=== PATIENT | male | born 1955 | race Caucasian/White ===

== ENCOUNTER 2020-04-21 09:45 | Inpatient (IN) | payer BC, MEDICARE, SELFPAY ==
[2020-04-21] VITALS (7 sets, daily range): BP systolic 126–160; BP diastolic 72–89; PULSE 78–95; RESP 16–22; TEMP 36.4–37; O2SAT 96–98
--- NOTE | ~2020-04-21 | CT_ITS ---
EXAMINATION: CT brain wo con INDICATION: Aphasia COMPARISON: None TECHNIQUE: Standard unenhanced head CT. The dose-length product (DLP) was 681.00 mGy-cm. The mA was a djusted according to patient size. Iterative reconstruction technique was employed. FINDINGS: There is no acute intraparenchymal hemorrhage. No evidence of mass lesion. There is encepha lomalacia of the right temporal lobe, consistent with prior infarction. There are also old infarcts o f the left basal ganglia. There is mild periventricular and subcortical hypodensity probably related to small vessel ischemic disease. There is mild prominence of the sulci and ventricles related to cer ebral atrophy. Intracranial calcified cerebral atherosclerosis is noted. There are no extra-axial col lections. There is no mass effect or midline shift. The orbits and soft tissues are unremarkable. Th e visualized sinuses and mastoid air cells are well aerated. IMPRESSION: 1. Areas of prior infarction without acute intracranial abnormality. 2. Age related findings. Reviewed, dictated and finalized at location A. IAL TESTER
--- NOTE | ~2020-04-21 | US_ITS ---
EXAMINATION: US carotid duplex BI DATE: 04/21/2020 14:37 INDICATION: Aphasia. Left hemiparesis. TECHNIQUE: Grayscale, color Doppler, and pulsed Doppler images of the cervical carotid arteries were obtained. The degree of vessel stenosis is placed in one of the following categories: normal, <50%, 5 0-69%, >=70% but less than near-occlusion, near-occlusion, or total occlusion. Note that percent sten osis relative to normal distal artery lumen diameter is indirectly measured from velocity measurement s as described by Kendell, et al. Radiology 2003; 229:340-346. COMPARISON: Ultrasound 05/06/2017 FINDINGS: RIGHT: The right common carotid artery (CCA) peak systolic velocity (PSV) is 106 cm/s. The right internal ca rotid artery (ICA) PSV is 71 cm/s. The right ICA end-diastolic velocity (EDV) is 14 cm/s. The right I CA/CCA PSV ratio is 0.7. Grayscale and color Doppler images yield an estimate of <50% diameter reduct ion from plaque in the ICA. There is antegrade flow in the right vertebral artery. LEFT: The left CCA PSV is 126 cm/s. The left ICA PSV is 76 cm/s. The left ICA EDV is 21 cm/s. The left ICA/ CCA PSV ratio is 0.6. Grayscale and color Doppler images yield an estimate of <50% diameter reduction from plaque in the ICA. There is antegrade flow in the left vertebral artery. IMPRESSION: 1. <50% stenosis in the right internal carotid artery. 2. <50% stenosis in the left internal carotid artery. Reviewed, dictated and finalized at location A. HEMIST
--- NOTE | ~2020-04-21 | XR_ITS ---
EXAMINATION: XR chest 1V portable INDICATION: Dysphagia, CVA TECHNIQUE: Portable AP chest at 1006 hours COMPARISON: None available FINDINGS: The lungs are free of acute opacities. There is no pleural effusion or pneumothorax. The ca rdiomediastinal silhouette is normal. There are partially imaged surgical changes in the lower cervic al spine. IMPRESSION: 1. No acute cardiopulmonary abnormality. Reviewed, dictated and finalized at location A. ER TENDER
--- NOTE | ~2020-04-21 | MR_ITS ---
EXAMINATION: MR brain/brain stem wo/w con DATE: 04/22/2020 10:50 INDICATION: Cerebral vascular accident. Left hemiparesis. TECHNIQUE: Magnetic resonance imaging (MRI) of the brain and brainstem was performed without and with 20 mL MultiHance intravenous contrast. Sequences included sagittal and axial T1-weighted FSE, axial diffusion-weighted FS EPI, axial T2*-weighted GRE, axial T2-weighted FLAIR Propeller, and axial T2-we ighted Propeller. Postcontrast sequences included axial and coronal T1-weighted FSE. Apparent diffusi on coefficient (ADC) maps were created. COMPARISON: Head CT 05/01/2020, brain MRI 05/06/2017 FINDINGS: There is chronic encephalomalacia in right temporal lobe. There are patchy areas of acute i nfarct involving right temporal lobe, right insula, and the right frontoparietal deep white matter. T here is an acute infarct in the left basal ganglia. There are small old infarcts in the cerebellum on the right. There is an old infarct in the left caudate nucleus. There are scattered areas of nonspec ific increased T2-weighted signal intensity in the cerebral white matter. There is an old infarct in left frontal lobe. There is no intracranial hemorrhage or abnormal mass lesion. The ventricles are no rmal in size. There are likely changes of left ocular lens replacement surgery. There is mild mucosal thickening in the ethmoid sinuses. The mastoid air cells are normal. IMPRESSION: 1. Acute infarcts involving the right temporal lobe, right insula, right frontoparietal deep white ma tter, and left basal ganglia. 2. Old infarcts involving the right temporal lobe, left frontal lobe, left caudate nucleus, and right cerebellum. 3. Moderate nonspecific cerebral white matter disease, which likely represents chronic small vessel i schemic disease. Reviewed, dictated and finalized at location A. INE INSPECTOR IMPRESSION: 1. Acute infarcts involving the right temporal lobe, right insula, right fronto parietal deep white matter, and left basal ganglia. 2. Old infarcts involving the right temporal lobe, left frontal lobe, left caud ate nucleus, and right cerebellum. 3. Moderate nonspecific cerebral white matter disease, which likely represents chronic small vessel ischemic disease.
--- NOTE | 2020-04-21 09:47 | ECG_ITS ---
Measurements Intervals [place] Rate: 91 P: 16 UT: 141 QRS: 58 QRSD: 124 T: -61 QT: 371 QTc: 457 Interpretive Statements SINUS RHYTHM VENTRICULAR PREMATURE COMPLEX INTRAVENTRICULAR CONDUCTION DELAY BORDERLINE ST-T WAVE ABNORMALITY- INFERIOR LEADS ABNORMAL ECG Electronically Signed On 04-21-2020 10:11:29 ASSEMBLING INSPECTOR by Eliezer Evans D.O.
--- NOTE | 2020-04-21 09:47 | ED.NEUROSD ---
HPI - Neuro Symptoms/Deficit General Chief Complaint: Suspected CVA Stated Complaint: poss cva Source: RN notes reviewed History of Present Illness HPI Narrative: Patient presents to emergency department from home via EMS for left-sided weakness and aphasia. Patient with a previous CVA 3 years ago that left him with mild left-sided weakness. Per the patient's who discussed with EMS the patient's last known normal Tuesday and has had increasing left-sided weakness as well as aphasia which is new patient is on Eliquis daily which she has been taking. Patient denies any fevers or chills chest pain shortness of breath or any other symptoms per the patient's was present the patient took his Eliquis this morning Related Data Home Medications Medication Instructions Recorded Confirmed amlodipine 04/21/20 apixaban [Eliquis] mg 04/21/20 atorvastatin 04/21/20 04/21/20 celecoxib [Celebrex] mg 04/21/20 empagliflozin [Jardiance] mg 04/21/20 furosemide 04/21/20 glyburide mg 04/21/20 liraglutide [Victoza 2-Javier] mg SUBCUT 04/21/20 lisinopril 04/21/20 potassium chloride meq PO 04/21/20 sitagliptin-metformin [Janumet] tablet 04/21/20 Allergies Allergy/AdvReac Type Severity Reaction Status Date / Time No Known Allergies Allergy Verified 04/21/20 10:07 Review of Systems Review of Systems: Narrative: Gen.: Denies fevers or chills Eyes: Denies eye pain or visual change ENT: Denies congestion Respiratory: Denies shortness of breath or cough CV: Denies chest pain or palpitations GI: Denies abdominal pain nausea, emesis or diarrhea denies burning, urgency, frequency or hematuria Musculoskeletal: Denies back pain or muscle pain Neuro: See HPI Skin: Denies rash Except as documented, all other systems reviewed and negative [facility] Past Medical History Medical History (Updated 04/21/20 @ 11:05 by Dorian Arteaga DO) CVA (cerebral vascular accident) Social History Social History (Updated 04/21/20 @ 09:48 by Dorian Arteaga DO) Smoking status: Never smoker Exam Narrative: Exam Narrative: APPEARANCE: No acute distress, nontoxic, resting in bed HEENT: Normocephalic, atraumatic, OMM, TMs clear bilaterally EYES: PERRL, EOMI NECK: Supple, nontender, full range of motion without pain, no meningismus RESPIRATORY: No respiratory distress, clear to auscultation bilaterally with no rhonchi wheezing or rales CARDIOVASCULAR: RRR s murmur ABDOMINAL: Soft, nontender, nondistended MUSCULOSKELETAL: Moves all extremities. No clubbing, cyanosis or edema. NEURO: A and O ?2, following commands, aphasia, cranial nerves II through XII grossly intact, muscle strength 5 out of 5 in right upper extremity and right lower extremity, muscle strength 4-5 in left upper extremity left lower extremity SKIN:: Warm, dry. Normal Color PSYCHIATRIC: Normal affect/mood Course Course Emergency Course: Dr. Armstrong presentation work-up agrees with admission at this time Discussed with Dr. Sanz presentation work-up agrees with consult. Patient received his Eliquis this morning agrees no additional medication Discussed with patient and family results of workup and diagnosis. Discussed need for admission. Patient and family understand and agree to current treatment plan Vital Signs Vital signs: Vital Signs Pulse Rate 79 04/21/20 10:01 Respiratory Rate 22 H 04/21/20 10:01 Blood Pressure 135/73 04/21/20 10:01 Pulse Oximetry 98 04/21/20 10:01 Pulse Rate 79 04/21/20 10:01 Respiratory Rate 22 H 04/21/20 10:01 Blood Pressure 135/73 04/21/20 10:01 Pulse Oximetry 98 04/21/20 10:01 MDM - Neuro Symptoms/Deficit Lab Data Result diagrams: 04/21/20 09:55 04/21/20 09:55 Labs: Lab Results 04/21/20 04/21/20 04/21/20 Range/Units 09:54 09:55 09:55 WBC 11.0 H (4.5-10.0) K/mm3 RBC 4.98 (4.2-5.4) M/mm3 Hgb 15.6 H (12.0-15.0) g/dL Hct 46.6 (37.0-47.0) % MCV 9
[2020-04-21 10:00] LABS: Glucose Point of Care 147 (65-105)
[2020-04-21 10:09] LABS: Basophils Percent Auto 0.3 % (0.2-1.2); Eosinophils Absolute Auto 0.1 K/mm3 (0-0.3); Eosinophils Percent Auto 1.1 % (0-4.4); Hematocrit 46.6 % (37.0-47.0); Hemoglobin 15.6 g/dL (12.0-15.0); Immature Granulocyte Absolute 0.05 K/mm3 (0.00-0.031); Immature Granulocyte Percent A 0.5 % (0-0.5); Lymphocytes Absolute Auto 1.74 K/mm3 (0.9-3.2); Lymphocytes Percent Auto 15.8 % (18.3-44.2); Mean Corpuscular HGB Conc 33.5 g/dl (32-36); Mean Corpuscular Hemoglobin 31.3 pg (26-34); Mean Corpuscular Volume 93.6 fl (80-100); Mean Platelet Volume 9.4 fl (7.4-10.4); Monocytes Absolute Auto 0.7 K/mm3 (0.1-0.6); Monocytes Percent Auto 6.1 % (2.6-8.5); Neutrophils Absolute Auto 8.4 K/mm3 (1.3-6.7); Neutrophils Percent Auto 76.2 % (45.5-73.1); Platelet Count Result 207 k/mm3 (150-375); Red Blood Count 4.98 M/mm3 (4.2-5.4); Red Cell Distribution Width 12.7 % (11.5-14.5)
[2020-04-21 10:18] LABS: INR 1.1; Prothrombin Time 14.7 Seconds (11.1-14.7)
[2020-04-21 10:19] LABS: Partial Thromboplastin Time 31.3 SECONDS (22.3-36.8)
--- NOTE | 2020-04-21 10:56 | PC.NURSE ---
report given to Nuria CORTES. patient resting on stretcher. on cardiac technician. at bedside.
[2020-04-21 11:00] LABS: Anion Gap 9 mmol/L (8-16); Blood Urea Nitrogen 19 mg/dL (7-17); Calcium 8.9 mg/dL (8.4-10.2); Carbon Dioxide 26 mmol/L (22-30); Chloride 104 mmol/L (98-107); Estimated Glomerular Filt Rate > 60; Glucose 143 mg/dL (65-105); Potassium 3.9 mmol/L (3.4-5.0); Sodium 139 mmol/L (137-145)
[2020-04-21 11:10] LABS: Add Urine Microscopic? YES; Appearance Urine Clear (Clear); Bacteria Urine Trace /hpf; Bilirubin Urine Negative (Negative); Blood Urine Negative (Negative); Color Urine Yellow (Yellow); Glucose Urine UA 3+ mg/dL (Negative); Ketones Urine 1+ mg/dL (Negative); Leukocyte Esterase Ur Negative LEU/UL (Negative); Mucus Urine Rare /lpf; Nitrate Urine Negative (Negative); Protein Urine Negative (Negative); RBC Urine 0-2 /hpf (0-2); Urobilinogen Urine Negative mg/dL (<2.0); WBC Urine 0-3 /hpf
[2020-04-21 11:11] LABS: Specific Grav Ur 1.031 (1.001-1.035)
[2020-04-21 11:12] LABS: Troponin I < 0.012 ng/mL (0.000-0.034)
--- NOTE | 2020-04-21 13:30 | PM.IMHP ---
H&P: HPI History of Present Illness Date/Time: 04/21/20 13:30 Chief Complaint: Suspected stroke. Narrative: This is a a 65-year-old male with history stroke with mild left-sided weakness, hypertension, hyperlipidemia, and type 2 diabetes mellitus presented to the emergency department earlier today via EMS from home for evaluation of a suspected stroke. According to the patient's , he appeared to have increasing left-sided weakness from his baseline on Tuesday and is my understanding that today he had difficulty speaking. He presented with expressive aphasia on arrival to the emergency department and while he is able answer some questions he has a difficult time getting a lot of his words out. At the time my evaluation he has no specific complaints and denies headache, vertigo, paresthesias, dysphagia, and gait disturbances. He states compliance with his home medication, including apixaban. Review of Systems Review of Systems: Narrative: Twelve systems were reviewed with pertinent positives and negatives as per HPI. Somewhat limited given his expressive aphasia but I think he does understand when I am saying and he nods and shakes his head appropriately. He denies recent cold and flu symptoms. No fall or head trauma. No chest pain or shortness of breath. Except as documented, all other systems were reviewed and are negative. [facility], LAT[facility] Past Medical History Medical History (Updated 04/21/20 @ 23:53 by Gabi Subramanian PA-C) Cerebrovascular accident CVA in June 2015 and July 2015 presenting with expressive aphasia (improved) and mild residual left-sided weakness. 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 DAVID was negative for cardioembolic source. He has been on Eliquis since that time. Congenital duplication of renal collecting system History of pancreatitis With pancreatic stent. Hyperlipidemia Hypertension Obstructive sleep apnea on CPAP Patient states he has not been wearing his CPAP. Type 2 diabetes mellitus Surgical History Surgical History (Updated 04/21/20 @ 13:23 by Gabi Subramanian PA-C) History of cardiac catheterization (~2011) Normal coronary anatomy. History of cervical spinal surgery x2. History of vein stripping Family History Family History Other Acute myocardial infarction Diabetes mellitus Heart disease Hypertension Lung cancer Parkinson's disease Social History Social History (Updated 04/21/20 @ 13:39 by Gabi Subramanian PA-C) Social History: The patient lives in [place] with his . Retired from the [employer]. He smoked briefly as a teenager. No alcohol or illicit substance abuse. His Adi is his surrogate decision maker and he wishes to be a full code. Smoking status: Never smoker Alcohol intake: never Substance use: never Gender identity (if verbalized by the patient): Male Sexual Orientation (if Verbalized by the Patient): Straight or Heterosexual Spiritual care concerns: No Meds Home Medications and Allergies Home Medications Medication Instructions Recorded Confirmed Type amlodipine 5 mg PO BID 04/21/20 04/21/20 History apixaban [Eliquis] 5 mg PO BID 04/21/20 04/21/20 History atorvastatin 40 mg PO DAILY 04/21/20 04/21/20 History celecoxib [Celebrex] 200 mg PO DAILY 04/21/20 04/21/20 History cholestyramine (with sugar) 1 - 2 ea PO DAILY 04/21/20 04/21/20 History empagliflozin [Jardiance] 25 mg PO DAILY 04/21/20 04/21/20 History furosemide 40 mg PO DAILY 04/21/20 04/21/20 History glyburide 5 mg PO DAILY 04/21/20 04/21/20 History liraglutide [Victoza 2-Javier] 1.8 mg SUBCUT DAILY 04/21/20 04/21/20 History potassium chloride 20 meq PO DAILY 04/21/20 04/21/20 History quinapril 40 mg PO DAILY 04/21/20 04/21/20 History sitagliptin-metformin [Janumet] 50 - 1,000 tablet PO BID 04/21/20 04/21/20 History Allergies Allergy/AdvReac Type Severity Reacti
--- NOTE | 2020-04-21 13:35 | ADMGEN ---
This patient, Harley Hernandez, was admitted to Medical Room 260-. Patient/family oriented to hospital policies and general routines including ID bracelet, bed and alarms, visiting hours, pain management, procedures, bathroom and other care routines, personal items, smoking policy, room service/diet, and visiting hours. Information on how to activate the Rapid Response Team has been discussed. Patient/Family are encouraged to report perceived risks to care and to ask questions if they do not understand what they are told or what they should do.
[2020-04-21 14:34] LABS: Troponin I < 0.012 ng/mL (0.000-0.034)
[2020-04-21 16:43] LABS: Glucose Point of Care 94 (65-105)
[2020-04-21 17:35] LABS: Troponin I < 0.012 ng/mL (0.000-0.034)
[2020-04-21 21:04] LABS: Glucose Point of Care 217 (65-105)
[2020-04-22] VITALS (10 sets, daily range): BP systolic 115–174; BP diastolic 61–92; PULSE 68–99; RESP 14–20; TEMP 36.3–36.9; O2SAT 97–99
--- NOTE | 2020-04-22 | ECHO_ITS ---
Patient Info Name: Harley Hernandez Age: 65 years : 1955 Gender: Male Ht: 73 in Wt: 250 lbs BSA: 2.45 m2 HR: 90 bpm BP: 174 / 82 mmHg Heart Rhythm: Sinus Rhythm Technical Quality: Poor Exam Date: 04/22/2020 1:43 PM Exam Location: [facility] Patient Status: Inpatient Admit Date: 04/21/2020 Staff Ordering Physician: Vasiliy Sanz MD Frame Stylist: Alok Rao RDCS Attending Provider: Rekha Armstrong MD Exam Type: CA echo dop color flow w con Study Info Indications 436.0 - CVA Complete two-dimensional, color flow and Doppler transthoracic echocardiogram is performed with contrast to opacify the left ventricle and to improve the deliniation of the left ventricle endocardial borders. Contrast/Agitated Saline Contrast/Ag. Saline: Definity Amount: 2.00 ml Administered By: Lana Pratt RN Existing IV Access: Yes History/Risk Factors Possible stroke w/ aphasia, HTN, DM2. Summary 1. Technically suboptimal study due to poor sonographic images. 2. Definity contrast administered improved wall motion interpretation. However, definity in the parasternal views were limited and suboptimal. 3. Left ventricular systolic function is preserved, estimated at 50-55%. 4. Left ventricular chamber dimension is mildly enlarged. 5. The left ventricular diastolic function is grade I diastolic dysfunction. 6. E/e' 7 is not elevated. 7. There is mild aortic valve sclerosis. Left Ventricle Technically suboptimal study due to poor sonographic images. Definity contrast administered improved wall motion interpretation. However, definity in the parasternal views were limited and suboptimal. E/e' 7 is not elevated. Left ventricular systolic function is preserved, estimated at 50-55%. Left ventricular chamber dimension is mildly enlarged. The left ventricular diastolic function is grade I diastolic dysfunction. Right Ventricle Right ventricular chamber dimension is not well visualized. Left Atria Left atrial chamber dimension is normal. Right Atria Right atrial chamber dimension is not well visualized. Aortic Valve The aortic valve is not well visualized. Cannot determine number of aortic valve leaflets. There is mild aortic valve sclerosis. There is no aortic valve stenosis. There is no aortic valve regurgitation. Pulmonic Valve The pulmonic valve is not well visualized. Mitral Valve The mitral valve has not well visualized. There is no mitral valve stenosis. There is no mitral valve regurgitation. Tricuspid Valve The tricuspid valve leaflets are not well visualized. There is no tricuspid valve regurgitation. Pericardium/Pleural There is no pericardial effusion. Inferior Vena Cava Normal inferior vena cava with >50% collapse upon inspiration consistent with normal right atrial pressure, 5 mmHg. Aorta Normal aortic root size. The aortic root size at the sinus of Valsalva is not well visualized. Left Ventricular Outflow Tract Name Value Normal LVOT 2D LVOT Diameter 2.07 cm LVOT Doppler LVOT Peak Gradient 7 mmHg
[2020-04-22 07:49] LABS: Basophils Percent Auto 0.3 % (0.2-1.2); Eosinophils Absolute Auto 0.2 K/mm3 (0-0.3); Eosinophils Percent Auto 1.9 % (0-4.4); Hematocrit 47.3 % (42.0-52.0); Immature Granulocyte Absolute 0.04 K/mm3 (0.00-0.031); Immature Granulocyte Percent A 0.4 % (0-0.5); Lymphocytes Absolute Auto 1.65 K/mm3 (0.9-3.2); Lymphocytes Percent Auto 18.5 % (18.3-44.2); Mean Corpuscular HGB Conc 33.8 g/dl (32-36); Mean Corpuscular Hemoglobin 31.8 pg (26-34); Mean Platelet Volume 9.5 fl (7.4-10.4); Monocytes Absolute Auto 0.6 K/mm3 (0.1-0.6); Monocytes Percent Auto 6.6 % (2.6-8.5); Neutrophils Absolute Auto 6.4 K/mm3 (1.3-6.7); Neutrophils Percent Auto 72.3 % (45.5-73.1); Platelet Count Result 189 k/mm3 (150-375); Red Blood Count 5.03 M/mm3 (4.6-6.20); Red Cell Distribution Width 12.6 % (11.5-14.5); White Blood Count 8.9 K/mm3 (4.5-10.0)
[2020-04-22 07:52] LABS: Glucose Point of Care 160 (65-105)
[2020-04-22 08:02] LABS: Alanine Aminotransferase 23 U/L (4-50); Albumin Level 4.1 g/dL (3.5-5.1); Alkaline Phosphatase 71 U/L (38-126); Anion Gap 7 mmol/L (8-16); Aspartate Amino Transferase 33 U/L (17-59); Bilirubin,Total 0.8 mg/dL (0.2-1.3); Blood Urea Nitrogen 16 mg/dL (9-20); Calcium 8.8 mg/dL (8.4-10.2); Carbon Dioxide 25 mmol/L (22-30); Chloride 108 mmol/L (98-107); Cholesterol 105 mg/dL (0-200); Estimated Glomerular Filt Rate > 60; Glucose 171 mg/dL (75-110); HDL Direct 30 mg/dL; Potassium 4.1 mmol/L (3.4-5.0); Sodium 140 mmol/L (137-145); Triglycerides 159 mg/dL (<150)
[2020-04-22 08:12] LABS: Hemoglobin A1C 8.2 % (<5.7)
[2020-04-22 08:13] LABS: LDL Cholesterol Direct 48 mg/dL
[2020-04-22] MEDS: lisinopriL 20 MG TABLET 40 MG PO (08:30)
[2020-04-22] MEDS: CELECOXIB 200 MG CAPSULE PO (08:31)
[2020-04-22] MEDS: amLODIPine BESYLATE 5 MG TABLET PO ×2 (08:31→17:28)
[2020-04-22] MEDS: FUROSEMIDE 40 MG TABLET PO (08:31)
[2020-04-22] MEDS: ATORVASTATIN 40 MG TABLET PO (08:31)
[2020-04-22] MEDS: POTASSIUM CHLORIDE 20 MEQ TABLET.ER PO (08:31)
[2020-04-22] MEDS: APIXABAN 5 MG TABLET PO ×2 (08:32→20:02)
--- NOTE | 2020-04-22 10:02 | WPDNEURCNPN ---
Assessment and Plan Assessment and plan (1) Obstructive sleep apnea on CPAP: Code(s): G47.33 - Obstructive sleep apnea (adult) (pediatric); Z99.89 - Dependence on other enabling machines and devices Status: Acute (2) Type 2 diabetes mellitus: Code(s): E11.9 - Type 2 diabetes mellitus without complications Status: Acute (3) Hypertension: Code(s): I10 - Essential (primary) hypertension Status: Acute (4) Hyperlipidemia: Code(s): E78.5 - Hyperlipidemia, unspecified Status: Acute (5) Expressive aphasia: Code(s): R47.01 - Aphasia Status: Acute (6) CVA (cerebral vascular accident): Code(s): I63.9 - Cerebral infarction, unspecified Status: Acute Additional Plan history of stroke in the past with mild residual left hemiparesis in addition to the underlying comorbid conditions of hypertension diabetes mellitus came in for the possibility of new stroke will obtain the MRI of the brain before any further recommendations are made Consult date: 04/22/20 Time Seen: 10:00 HPI: Harley Hernandez is a 65 year old male Admitted to the hospital for the possibility of his stroke. Patient has ongoing history of 1. Hypertension 2. Hyperlipidemia 3. Type 2 diabetes mellitus 4. Previous mild left hemiparesis. As per the information available from the patient's he appeared to have had increasing left-sided weakness with difficulties in speech and when he came to the emergency room he had extreme difficulties with getting the words out. As mentioned before patient has had a stroke in June of 2015 and July of 2015 with expressive aphasia at that time his carotid study had revealed moderate stenosis of left ICA but DAVID was negative for any cardioembolic source and he has been on Eliquis since that time. His repeat carotid studies revealed less than 50% stenosis bilaterally, and repeat CT scan revealed areas of previous infarction, blood studies are compatible with hyperglycemia with hemoglobin A1c of 8.2 and triglycerides 159, at present is covered with the NovoLog 225units subcu t.i.d. with meals along with the metformin 1000 mg twice a day and also sitagliptin 50 mg twice a day, glyburide 5 mg daily Review of Systems Review of Systems: All systems reviewed & are unremarkable except as noted in HPI and below PMFSH Past Medical History Medical History Cerebrovascular accident CVA in June 2015 and July 2015 presenting with expressive aphasia (improved) and mild residual left-sided weakness. 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 DAVID was negative for cardioembolic source. He has been on Eliquis since that time. Congenital duplication of renal collecting system History of pancreatitis With pancreatic stent. Hyperlipidemia Hypertension Obstructive sleep apnea on CPAP Patient states he has not been wearing his CPAP. Type 2 diabetes mellitus Surgical History Surgical History History of cardiac catheterization (~2011) Normal coronary anatomy. History of cervical spinal surgery x2. History of vein stripping Family History Family History Other Acute myocardial infarction Diabetes mellitus Heart disease Hypertension Lung cancer Parkinson's disease Social History Social History Social History: The patient lives in [place] with his . Retired from the [employer]. He smoked briefly as a teenager. No alcohol or illicit substance abuse. His Adi is his surrogate decision maker and he wishes to be a full code. Smoking status: Never smoker Alcohol intake: never Substance use: never Gender identity (if verbalized by the patient): Male Sexual Orientation (if Verbalized by the Patient): Straight or Heterosexual Spiri
--- NOTE | 2020-04-22 10:54 | PCOTNOTE ---
Pt. out for MRI when first attempt made. Nursing stated he would return around 10:30am. Attempted again at 10:45 still out for MRI. Will attempt again later.
[2020-04-22] MEDS: CHOLESTYRAMINE (W/ SUGAR) 4 GM POWD.PACK PO (11:42)
[2020-04-22] MEDS: INSULIN ASPART (*BKC) 100 UNITS/ML SUB-Q (11:47)
[2020-04-22 11:48] LABS: Glucose Point of Care 220 (65-105)
--- NOTE | 2020-04-22 13:14 | PM.IMPN ---
Progress Note: A&P Assessment and Plan (1) CVA (cerebral vascular accident): Code(s): I63.9 - Cerebral infarction, unspecified Status: Acute Assessment and Plan: Acute CVA, as well as, old CVA noted on Brain MRI; read as, acute infarcts involving the right temporal lobe, right insula, right frontoparietal deep white matter, and left basal ganglia. Old infarcts involving the right temporal lobe, left frontal lobe, left caudate nucleus, and right cerebellum. Symptoms started on 04/19, thus not a candidate for tPA. Patient tells me he feels somewhat better today; able to express himself and feels his weakness is somewhat better, but still having left LE weakness. Dr. Sanz consulted and appreciate recommendations; rec no changes in medications at this time and rec therapy. Echo has been ordered per Neurology. Will continue with PT/OT/ST Continue Eliquis and statin therapy; he reports compliance with medicatinos Monitor Await Echo CC working on possible placement if patient/family agreeable (2) Hypertension: Code(s): I10 - Essential (primary) hypertension Status: Acute Assessment and Plan: BP a bit elevated this morning at 170s sys prior to home medications Continue home antihypertensives Monitor (3) Hyperlipidemia: Code(s): E78.5 - Hyperlipidemia, unspecified Status: Acute Assessment and Plan: Triglycerides mildly elevated and HDL low at 30, otherwise lipid panel unremarkable. LFTs WNL Continue statin (4) Type 2 diabetes mellitus: Code(s): E11.9 - Type 2 diabetes mellitus without complications Status: Acute Assessment and Plan: A1c 8.2 Accuchecks ACHS, hypoglycemia protocol, correctional insulin, diabetic diet Home medications held this morning as he refused breakfast. Resume when appropriate Some home meds are NF (5) Obstructive sleep apnea on CPAP: Code(s): G47.33 - Obstructive sleep apnea (adult) (pediatric); Z99.89 - Dependence on other enabling machines and devices Status: Acute Assessment and Plan: Continue home CPAP Subjective Date/time seen: 04/22/20 13:14 Objective Data Vital Signs Vital Signs: Vital Signs - 24 hr 04/21/20 15:01 04/21/20 15:05 04/21/20 16:00 Temperature 98.6 F Pulse Rate 90 94 Respiratory Rate 20 Blood Pressure 160/89 H Pulse Oximetry 96 98 04/21/20 20:00 04/21/20 22:00 04/22/20 00:00 Temperature 97.6 F Pulse Rate 81 78 71 Respiratory Rate 16 Blood Pressure 155/82 H Pulse Oximetry 98 04/22/20 04:00 04/22/20 06:00 04/22/20 08:00 Temperature 97.6 F Pulse Rate 71 82 93 Respiratory Rate 16 Blood Pressure 160/92 H Pulse Oximetry 97 04/22/20 08:40 04/22/20 12:00 Temperature 97.3 F L Pulse Rate 88 99 Respiratory Rate 18 Blood Pressure 174/82 H Pulse Oximetry 98 Intake/Output Intake/Output: Intake & Output 04/19/20 04/20/20 04/21/20 04/22/20 23:59 23:59 23:59 23:59 Intake Total 860 400 Output Total 300 Balance 560 400 Meds/Results Medications: Active Medications Generic Name Dose Route Start Last Admin Trade Name Freq PRN Reason Stop Dose Admin Amlodipine Besylate 5 mg 04/22/20 09:00 04/22/20 08:31 Amlodipine Besylate 5 Mg Tablet PO 5 mg BID JOSÉ ANTONIO Administration Apixaban 5 mg 04/22/20 09:00 04/22/20 08:32 Apixaban 5 Mg Tablet PO 5 mg Q12HR JOSÉ ANTONIO Administration Atorvastatin Calcium 40 mg 04/22/20 09:00 04/22/20 08:31 Atorvastatin 40 Mg Tablet PO 40 mg DAILY JOSÉ ANTONIO Administration Celecoxib 200 mg 04/22/20 08:00 04/22/20 08:31 Celecoxib 200 Mg Capsule PO 200 mg DAILY@0800 JOSÉ ANTONIO Administration Cholestyramine Resin 4 gm 04/22/20 10:00 04/22/20 11:42 Cholestyramine (W/ Sugar) 4 Gm Powd.Pack
[2020-04-22] MEDS: PERFLUTREN LIPID MICROSPHERES 1.5 ML VIAL DILUTED TO 10 ML TOTAL VOLUME IV PUSH (14:01)
--- NOTE | 2020-04-22 14:41 | PC.NURSE ---
On 04/22/20, the student, [MICHAEL JOHNSON], provided care and completed [facility] documentation on this patient. I have reviewed the student's documentation and agree with the findings.
[2020-04-22 16:43] LABS: Glucose Point of Care 144 (65-105)
[2020-04-22 20:26] LABS: Glucose Point of Care 149 (65-105)
[2020-04-23] VITALS (10 sets, daily range): BP systolic 145–152; BP diastolic 64–78; PULSE 61–95; RESP 18–20; TEMP 36.2–36.7; O2SAT 95–100
[2020-04-23] MEDS: FUROSEMIDE 40 MG TABLET PO (08:11)
[2020-04-23] MEDS: amLODIPine BESYLATE 5 MG TABLET PO ×2 (08:11→17:11)
[2020-04-23] MEDS: APIXABAN 5 MG TABLET PO ×2 (08:11→20:32)
[2020-04-23] MEDS: POTASSIUM CHLORIDE 20 MEQ TABLET.ER PO (08:11)
[2020-04-23] MEDS: CELECOXIB 200 MG CAPSULE PO (08:11)
[2020-04-23] MEDS: ATORVASTATIN 40 MG TABLET PO (08:11)
[2020-04-23] MEDS: lisinopriL 20 MG TABLET 40 MG PO (08:12)
[2020-04-23 09:01] LABS: Glucose Point of Care 159 (65-105)
[2020-04-23 11:29] LABS: Glucose Point of Care 173 (65-105)
--- NOTE | 2020-04-23 11:57 | WPDNEUROPN ---
Progress Note: A&P Assessment and Plan (1) CVA (cerebral vascular accident): Code(s): I63.9 - Cerebral infarction, unspecified Status: Acute (2) Hypertension: Code(s): I10 - Essential (primary) hypertension Status: Acute (3) Obstructive sleep apnea on CPAP: Code(s): G47.33 - Obstructive sleep apnea (adult) (pediatric); Z99.89 - Dependence on other enabling machines and devices Status: Acute Additional Plan bihemispheric disease with subcortical strokes as well involving the left basal ganglia left caudate nucleus and also right frontoparietal and right temporal and left frontal lobes will benefit from continuing the treatment as such that his anticoagulation therapy but again will require the physical therapy and occupational therapy Review of Systems Review of Systems: All systems reviewed & are unremarkable except as noted in HPI and below Exam Const: General: cooperative and comfortable Nutritional Appearance: overweight Limitations: behavioral limitations Neck: Neck: full ROM Resp: Effort & Inspection: normal respiratory effort Auscultation: clear to auscultation bilaterally Cardio: Jugular venous distension: no JVD Rhythm: abnormal rhythm GI: Auscultation: normal bowel sounds Neuro: General: oriented to person and oriented to place Cognition (Neuro): normal cognition Speech: normal speech Motor exam (neuro): Abnormal motor strength present Plantar Reflex Responses: upgoing (positive Babinski): left Psych: Appearance: grossly normal Objective Data Vital Signs Vital Signs: Vital Signs - 24 hr 04/22/20 12:00 04/22/20 14:53 04/22/20 16:00 Temperature 36.9 C Pulse Rate 99 83 86 Respiratory Rate 20 Blood Pressure 159/85 H Pulse Oximetry 97 04/22/20 20:00 04/22/20 22:00 04/23/20 00:00 Temperature 36.9 C Pulse Rate 73 73 64 Respiratory Rate 14 14 Blood Pressure 115/61 Pulse Oximetry 99 99 04/23/20 04:00 04/23/20 05:35 04/23/20 06:00 Temperature 36.6 C Pulse Rate 75 79 Respiratory Rate 20 18 Blood Pressure 145/64 H Pulse Oximetry 95 97 04/23/20 08:00 Temperature Pulse Rate 82 Respiratory Rate Blood Pressure Pulse Oximetry Intake/Output Intake/Output: Intake & Output 04/20/20 04/21/20 04/22/20 04/23/20 23:59 23:59 23:59 23:59 Intake Total 860 700 250 Output Total 300 100 100 Balance 560 600 150 Meds/Results Medications: Active Medications Generic Name Dose Route Start Last Admin Trade Name Reynaldo PRN Reason Stop Dose Admin Amlodipine Besylate 5 mg 04/22/20 09:00 04/23/20 08:11 Amlodipine Besylate 5 Mg Tablet PO 5 mg BID JOSÉ ANTONIO Administration Apixaban 5 mg 04/22/20 09:00 04/23/20 08:11 Apixaban 5 Mg Tablet PO 5 mg Q12HR JOSÉ ANTONIO Administration Atorvastatin Calcium 40 mg 04/22/20 09:00 04/23/20 08:11 Atorvastatin 40 Mg Tablet PO 40 mg DAILY JOSÉ ANTONIO Administration Celecoxib 200 mg 04/22/20 08:00 04/23/20 08:11 Celecoxib 200 Mg Capsule PO 200 mg DAILY@0800 JOSÉ ANTONIO Administration Cholestyramine Resin 4 gm 04/23/20 11:00 Cholestyramine (W/ Sugar) 4 Gm Powd.Pack PO QAM@1100 PRN Diarrhea Dextrose 12.5 gm 04/21/20 23:55 Dextrose 50% 25 Gm/50 Ml Syringe IV PUSH PRN PRN Hypoglycemia Protocol Furosemide 40 mg 04/22/20 09:00 04/23/20 08:11 Furosemide 40 Mg Tablet PO 40 mg DAILY JOSÉ ANTONIO Administration Glucagon 1 mg 04/21/20 23:55 Glucagon For Inj 1 Mg Vial IM PRN PRN Hypoglycemia Protocol Glucose 15 gm 04/21/20 23:55 Glucose Oral Gel 15 Gm Of Glucse In 37.5 Gm Tube PO PRN PRN Hypoglycemia Protocol Glyburide 5 mg 04/22/20 08:00 Glyburide 5 Mg Tablet PO DAILY@0800 JOSÉ ANTONIO Dextrose 1,000 mls @ 100 mls/hr 04/21/20 23:55 Dextrose 5% 1,000 Ml IVPB PRN PRN Hypoglycemia Protocol Insulin Aspart 2 - 5 units 04/22/20 08:00 04/23/20 11:28 Insulin Aspart (*Bkc) 100 Uni
--- NOTE | 2020-04-23 12:02 | PM.IMPN ---
Progress Note: A&P Assessment and Plan (1) CVA (cerebral vascular accident): Assessment and Plan: Acute CVA, as well as, old CVA noted on Brain MRI; please see above for results. Symptoms started on 04/19, thus not a candidate for tPA. Patient tells me he feels somewhat better again today; PT notes improvement with therapy. Dr. Sanz consulted and appreciate recommendations; rec no changes in medications at this time and rec therapy. Awaiting placement in [facility] or SNF Will continue with PT/OT/ST Continue Eliquis and statin therapy; he reports compliance with medications Monitor CC working on possible placement hopefully to [facility]. PT/OT feel patient would be a good candidate. COVID test to be collected today <Adelso Catherine PA-C - Last Filed: 04/23/20 13:11> (2) Hypertension: Assessment and Plan: BP 140s sys this mornning Continue home antihypertensives Monitor <Adelso Catherine PA-C - Last Filed: 04/23/20 13:11> (3) Hyperlipidemia: Assessment and Plan: Triglycerides mildly elevated and HDL low at 30, otherwise lipid panel unremarkable. LFTs WNL Continue statin <Adelso Catherine PA-C - Last Filed: 04/23/20 13:11> (4) Type 2 diabetes mellitus: Assessment and Plan: A1c 8.2. BGL appears to be 150-170s today Accuchecks ACHS, hypoglycemia protocol, correctional insulin, diabetic diet Some home meds are NF, continue to hold <JOHN Mckeon Last Filed: 04/23/20 13:11> (5) Obstructive sleep apnea on CPAP: Assessment and Plan: Continue home CPAP <Adelso Catherine PA-C - Last Filed: 04/23/20 13:11> (6) Feeling down: Assessment and Plan: Patient feeling down and discouraged about recent diagnosis. He was receptive to speaking with CC about resources for feeling down. No SI/HI or thoughts of harming self or others CC following and will provide resources for patient Hopefully will be able to visit patient tomorrow to lift spirits He was been switched to DNR per patient wishes <Adelso Catherine PA-C - Last Filed: 04/23/20 13:11> Subjective Date/time seen: 04/23/20 12:02 <Adelso Catherine PA-C - Last Filed: 04/23/20 13:11> Interval history: Patient is a 65 yo M with history of previous stroke with mild left-sided weakness, hypertension, hyperlipidemia, and type 2 diabetes mellitus who is seen in follow up for new CVAs as evident on brain MRI. Patient states he feels somewhat better today, but still having some weakness in LLE and some difficulty expressing himself. PT in room and states he has improved during their sessions. Of note, both CC and PT has noted patient feeling down and depressed about recent diagnoses. When questioned, he states something along the lines that he wished to just and be with his late relatives. We had a long discussion about this and he denied any SI/HI nor does he have any plans/wishes to harm himself or others. When questioned further he was trying to express that he wished to be a DNR status; this was confirmed several times with the patient. I spoke with his , Gretchen (with permission), who was understanding with his wishes and stated she would discuss further. CC was contacted for his feelings of being down and would be following and provide resources for such. No other complaints. Denies f/c/s, headaches, dizziness, lightheadedness, changes in v/h, cp/palpitations, sob/cough, n/v/d/c, abd pain, changes in BMs, dysuria, hematuria, cloudy urine, calf pain/swelling. <Adelso Catherine PA-C - Last Filed: 04/23/20 13:11> Review of Systems Review of Systems: All systems reviewed & are unremarkable except as noted in HPI and below <Adelso Catherine PA-C - Last Filed: 04/23/20 13:11> Exam Narrativ
--- NOTE | 2020-04-23 17:57 | PC.NURSE ---
Operations Vice President called and spoke with Adelso MENDOZA regarding pt stating no longer wanting to live, if he today that would be fine. He denies have any intent at this time. Adelso reports he did discuss this with him earlier today, and he is aware but pt has no intent. was made aware along with care coordination to provide pt with resources.
[2020-04-23 21:25] LABS: Glucose Point of Care 160 (65-105)
[2020-04-23 21:32] LABS: Glucose Point of Care 174 (65-105)
[2020-04-23 22:35] LABS: SARS-CoV-2 RNA PCR Negative
[2020-04-24] VITALS: PULSE 61
[2020-04-24 04:00] VITALS: PULSE 67
[2020-04-24 06:00] VITALS: BP 131/69; PULSE 74; RESP 18; TEMP 36.6; O2SAT 99
[2020-04-24 07:39] LABS: Glucose Point of Care 157 (65-105)
[2020-04-24 08:00] VITALS: PULSE 80
[2020-04-24] MEDS: amLODIPine BESYLATE 5 MG TABLET PO (09:17)
[2020-04-24] MEDS: ATORVASTATIN 40 MG TABLET PO (09:17)
[2020-04-24] MEDS: FUROSEMIDE 40 MG TABLET PO (09:17)
[2020-04-24] MEDS: APIXABAN 5 MG TABLET PO (09:17)
[2020-04-24] MEDS: lisinopriL 20 MG TABLET 40 MG PO (09:18)
[2020-04-24] MEDS: CELECOXIB 200 MG CAPSULE PO (09:18)
[2020-04-24] MEDS: POTASSIUM CHLORIDE 20 MEQ TABLET.ER PO (09:18)
--- NOTE | 2020-04-24 10:07 | PM.DS ---
DS: Admitting Diagnosis Admitting Diagnosis Admitting Diagnosis: Dysphasia and increased left sided weakness, r/o acute CVA DS: Discharge Diagnosis Discharge Diagnosis (1) CVA (cerebral vascular accident): Code(s): I63.9 - Cerebral infarction, unspecified Status: Acute Assessment and Plan: Acute CVA, as well as, old CVA noted on Brain MRI; please see above for results. Symptoms started on 04/19, thus not a candidate for tPA. Patient tells me he feels somewhat better again today; PT notes improvement with therapy. Dr. Sanz consulted and appreciate recommendations; rec no changes in medications at this time and rec therapy. Likely d/c to [facility] today Continue with PT/OT/ST Continue Eliquis and statin therapy; he reports compliance with medications F/u with Dr. Sanz and PCP D/c today to [facility] for further rehab (2) Hypertension: Code(s): I10 - Essential (primary) hypertension Status: Acute Assessment and Plan: BP 130s sys this morning Continue home antihypertensives (3) Hyperlipidemia: Code(s): E78.5 - Hyperlipidemia, unspecified Status: Acute Assessment and Plan: Triglycerides mildly elevated and HDL low at 30, otherwise lipid panel unremarkable. LFTs WNL Continue statin (4) Type 2 diabetes mellitus: Code(s): E11.9 - Type 2 diabetes mellitus without complications Status: Acute Assessment and Plan: A1c 8.2. BGL appears to be 150s this morning Accuchecks ACHS, hypoglycemia protocol, correctional insulin, diabetic diet during stay Some home meds are NF, Resume at discharge (5) Obstructive sleep apnea on CPAP: Code(s): G47.33 - Obstructive sleep apnea (adult) (pediatric); Z99.89 - Dependence on other enabling machines and devices Status: Acute Assessment and Plan: Continue home CPAP (6) Feeling down: Code(s): R45.89 - Other symptoms and signs involving emotional state Status: Acute Assessment and Plan: Patient feeling down and discouraged about recent diagnosis. He was receptive to speaking with CC about resources for feeling down; resources for counselors provided and he was encouraged to contact to establish care. No SI/HI or thoughts of harming self or others CC following and will provide resources for patient Hopefully will be able to visit patient today He was been switched to DNR per patient wishes DS: Summary Hospital Course Reason for hospitalization: Acute CVA Hospital Course: Date of arrival: 04/21/20 Date of discharge: 04/24/20 Patient is a 65-year-old male with history stroke with mild left-sided weakness, hypertension, hyperlipidemia, and type 2 diabetes mellitus presented to the emergency department on 04/21 via EMS from home for evaluation of a suspected stroke. Patient had increasing left sided weakness from his baseline and had dysphasia since 04/19. While in the ED, Ct scan showed areas of prior infarction without acute intracranial abnormality. He was outside window for tPA and had been compliant with his prescribed anticoagulant, thus tPA was not given. Dr. Sanz was consulted from the ED. Patient admitted under this setting of stroke r/o. Please see H&P for further details. Patient was admitted to the hospitalist service for further management/treatment. Brain MRI obtained on 04/22 showed acute infarcts involving right temporal loba, right insula, right frontoparietal deep white matter, and left basal ganglia; old infarcts also noted. Echo and carotid doppler were grossly unremarkable for etiology of symptoms. During hospital course, patient underwent PT/OT/ST sessions. It was recommended patient attend a rehab facility; patient and family elected to proceed with [facility] who accep
[2020-04-24 11:00] VITALS: BP 147/84; PULSE 88; RESP 18; TEMP 36.8; O2SAT 99
[2020-04-24 11:16] LABS: Glucose Point of Care 149 (65-105)
[2020-04-24] MEDS: polyethylene glycoL 3350 17 GM POWD.PACK PO (11:48)
[2020-04-24] MEDS: DOCUSATE SODIUM 100 MG CAPSULE PO (11:48)
[2020-04-24 12:00] VITALS: PULSE 86
--- NOTE | 2020-04-24 13:24 | PC.NURSE ---
On 04/24/20, the student, [Delio Mccarthy ], provided care and completed [facility] documentation on this patient. I have reviewed the student's documentation and agree with the findings.
== END 2020-04-24 13:48 | DRG 65 ==
LOC: ANHED 11:31 → ANH3MEDSUR 12:02 → ANH2MED 12:32
PROVIDERS: Physician Assistant; Admitting Provider Family Medicine; Emergency Provider Emergency Medicine; PCP Family Medicine; Visit Provider Family Medicine
DX: I63.9 Cerebral infarction, unspecified (principal); I69.354 Hemiplegia and hemiparesis following cerebral infarction affecting left non-dominant side; R47.01 Aphasia; R29.703 NIHSS score 3; Z20.822 Contact with and (suspected) exposure to COVID-19; I10 Essential (primary) hypertension; E78.5 Hyperlipidemia, unspecified; E11.9 Type 2 diabetes mellitus without complications; G47.33 Obstructive sleep apnea (adult) (pediatric); R45.89 Other symptoms and signs involving emotional state; Z66 Do not resuscitate; Z79.01 Long term (current) use of anticoagulants; Z79.899 Other long term (current) drug therapy; Z88.8 Allergy status to other drugs, medicaments and biological substances; Z99.89 Dependence on other enabling machines and devices
CPT/HCPCS: 36415; 70450; 70553; 71045; 80048; 80061; 80076; 81001; 82948; 83036; 84484; 85025; 85610; 85730; 92507; 92523; 93005; 93880; 97110; 97116; 97161; 97165; 97530; 97535; 99285; A9270; A9577; C8929; C9803; J1815; Q9957; U0003; U0005

== ENCOUNTER 2020-04-24 13:47 | IRF | payer BC, MEDICARE, SELFPAY ==
--- NOTE | 2020-04-24 14:33 | ADMGEN ---
This patient, Harley Hernandez, was admitted to [facility] Room 230-01. Patient/family oriented to hospital policies and general routines including ID bracelet, bed and alarms, visiting hours, pain management, procedures, bathroom and other care routines, personal items, smoking policy, room service/diet, and visiting hours. Information on how to activate the Rapid Response Team has been discussed. Patient/Family are encouraged to report perceived risks to care and to ask questions if they do not understand what they are told or what they should do.
[2020-04-24 15:38] VITALS: BP 144/83; PULSE 85; RESP 20; TEMP 36.6; O2SAT 98
[2020-04-24 15:39] VITALS: BMI 44.5
[2020-04-24 17:56] LABS: Glucose Point of Care 208 (65-105)
[2020-04-24] MEDS: APIXABAN 5 MG TABLET PO (17:59)
[2020-04-24] MEDS: amLODIPine BESYLATE 5 MG TABLET PO (18:00)
[2020-04-24] MEDS: metFORMIN HCL 500 MG TABLET 1000 MG PO (18:00)
--- NOTE | 2020-04-24 18:20 | PC.NURSE ---
Patient s , Gretchen, voiced that she will bring from home victoza and jardiance.
--- NOTE | 2020-04-24 18:27 | PC.NURSE ---
Patient s voiced that patient takes Questran PRN at home. Phoned patient s home pharmacy and pharmacist voiced that Questran in Dec 2019 was a 30 day suppy BID not PRN.
[2020-04-24 21:40] LABS: Glucose Point of Care 149 (65-105)
[2020-04-24 21:55] VITALS: BP 123/61; PULSE 74; RESP 18; TEMP 36; O2SAT 97
[2020-04-24 23:55] VITALS: PULSE 75; RESP 15; O2SAT 96
[2020-04-25 03:27] VITALS: PULSE 71; RESP 12; O2SAT 97
[2020-04-25 04:56] VITALS: BP 144/74; PULSE 70; RESP 18; TEMP 36.2; O2SAT 100
[2020-04-25 05:21] LABS: Basophils Percent Auto 0.4 % (0.2-1.2); Eosinophils Absolute Auto 0.3 K/mm3 (0-0.3); Eosinophils Percent Auto 2.5 % (0-4.4); Hematocrit 46.3 % (42.0-52.0); Hemoglobin 15.9 g/dL (14.0-18.0); Immature Granulocyte Absolute 0.05 K/mm3 (0.00-0.031); Immature Granulocyte Percent A 0.5 % (0-0.5); Lymphocytes Absolute Auto 1.85 K/mm3 (0.9-3.2); Lymphocytes Percent Auto 17.8 % (18.3-44.2); Mean Corpuscular HGB Conc 34.3 g/dl (32-36); Mean Corpuscular Hemoglobin 32.1 pg (26-34); Mean Corpuscular Volume 93.5 fl (80-100); Mean Platelet Volume 9.3 fl (7.4-10.4); Monocytes Absolute Auto 0.8 K/mm3 (0.1-0.6); Monocytes Percent Auto 7.2 % (2.6-8.5); Neutrophils Absolute Auto 7.5 K/mm3 (1.3-6.7); Neutrophils Percent Auto 71.6 % (45.5-73.1); Platelet Count Result 199 k/mm3 (150-375); Red Blood Count 4.95 M/mm3 (4.6-6.20); Red Cell Distribution Width 12.8 % (11.5-14.5); White Blood Count 10.4 K/mm3 (4.5-10.0)
[2020-04-25 05:32] LABS: Anion Gap 8 mmol/L (8-16); Blood Urea Nitrogen 23 mg/dL (9-20); Calcium 8.6 mg/dL (8.4-10.2); Carbon Dioxide 27 mmol/L (22-30); Chloride 104 mmol/L (98-107); Estimated CRCL calculation 119 ml/min; Estimated Glomerular Filt Rate > 60; Glucose 170 mg/dL (75-110); Potassium 4.4 mmol/L (3.4-5.0); Sodium 139 mmol/L (137-145)
[2020-04-25] MEDS: lisinopriL 20 MG TABLET 40 MG PO (08:59)
[2020-04-25] MEDS: ATORVASTATIN 40 MG TABLET PO (08:59)
[2020-04-25] MEDS: POTASSIUM CHLORIDE 20 MEQ TABLET.ER PO (08:59)
[2020-04-25] MEDS: amLODIPine BESYLATE 5 MG TABLET PO ×2 (08:59→17:22)
[2020-04-25] MEDS: CELECOXIB 200 MG CAPSULE PO (09:00)
[2020-04-25] MEDS: FUROSEMIDE 40 MG TABLET PO (09:00)
[2020-04-25] MEDS: metFORMIN HCL 500 MG TABLET 1000 MG PO ×2 (09:00→17:22)
[2020-04-25] MEDS: glyBURIDE 5 MG TABLET PO (09:00)
[2020-04-25] MEDS: APIXABAN 5 MG TABLET PO ×2 (09:00→17:22)
[2020-04-25 11:48] LABS: Glucose Point of Care 203 (65-105)
[2020-04-25 12:08] VITALS: BMI 44.5
--- NOTE | 2020-04-25 13:17 | PCNSR ---
On 04/25/20, the student, Janette Fay, provided care and completed [facility] documentation on this patient. I have reviewed the student's documentation and agree with the findings.
[2020-04-25 14:00] VITALS: BP 148/76; PULSE 90; RESP 18; TEMP 36; O2SAT 98
--- NOTE | 2020-04-25 14:35 | PCPTNOTE ---
Harley Hernandez was evaluated for a wheeled walker on 04/25/2020 by this physical therapist. The wheeled walker will resolve patient's mobility limitations and will be used for ADL's within the home. The patient can safely use the wheeled walker. ?The wheeled walker will resolve the patient?s mobility deficits, including impaired balance, L hemiparesis, and decreased endurance.
--- NOTE | 2020-04-25 14:52 | RPD ---
INDIVIDUALIZED PLAN OF CARE FOR aHrley Hernandez Brief Synthesis of Pre-Admission Screen, Post-Admission Evaluation and Therapy Evaluations: The patient presents to rehab with . Comorbidities include . Deficits include: Letterpress Printing Machinist/Case Management for: Discharge Planning and Patient/Family Counseling Physical Therapy: 5 days per week for 90 minutes. Treatments may include: Therapeutic Exercise, Gait Training, Neuromuscular Re-education, Transfer Training, Community Reintegration, Bed Mobility, Patient/Family Education, Wheelchair Mobility Group Therapy/Concurrent Therapy Rationales: -Improve attention span during functional activities in a distracted environment. -Enhance problem solving and/or adequate judgment skills during functional activities in a distracted environment. -Promote increased safety awareness in a distracted environment to reduce fall risk with functional tasks, transfers, and ambulation to allow a more safe, self-sufficient return to the home environment. -Improve dynamic balance skills to promote safety and independence with functional activities in a distracted environment for maximum gain. Occupational Therapy: 5 days per week for 90 minutes. Treatments may include: Therapeutic Exercise, Therapeutic Activity, Cognitive Training, Self-Care Transfer Training, Community Reintegration, Home Management, Patient/Family Education, Wheelchair Mobility Training, Energy Conservation Training Group Therapy/Concurrent Therapy Rationales: -Allow therapist to observe and teach generalization and carry-over of skills learned in individual therapy. -Enhance problem solving and sequencing skills during therapeutic activities in a distracted environment. -Promote increased safety awareness in a realistic setting to reduce fall risk with functional tasks due to visual and verbal distractions. -Increase functional level with ADLs, ADL transfers and use of adaptive equipment through therapeutic activities with others while promoting safety to allow a more safe, self-sufficient return home. Speech Therapy: 5 days per week for 30 minutes. Treatments may include: Dysphasia Therapy, Speech/Language/Communication Therapy, Cognitive Training, Patient/Family Education Group Therapy/Concurrent Therapy - Rationale: -Allow therapist to observe and teach generalization and carry-over of skills learned in individual therapy. -Improve comprehension skills with complex or abstract ideas through discussion in a realistic setting. -Enhance problem solving skills with complex issues during activities in a distracted environment. -Promote increased memory skills and concentration in a distracted environment for a safe transition home. -Improve attention and focus with language/communication skills in a realistic and supportive therapeutic setting. -Allow for practice of expression of basic needs and ideas through functional activities with others. Medical Prognosis: Good Anticipated Length of Stay: 12 days Rehab Goals: Eating Goal: Oral Hygiene Goal: 06-Independent Toileting Hygiene Goal: 04-Supervision or Touching Assistance Shower/Bathe Self Goal: 04-Supervision or Touching Assistance Upper Body Dressing Goal: 06-Independent Lower Body Dressing Goal: 04-Supervision or Touching Assistance Putting On/Taking Off Footwear Goal: 04-Supervision or Touching Assistance Rolling Left and Right Goal: 06-Independent Sit to Lying Goal: 06-Independent Lying to Sitting on Side of Bed Goal: 06-Independent Sit to Stand Goal: 04-Supervision or Touching Assistance Chair/Ixj-ni-Ujllf Transfer Goal: 04-Supervision or Touching Assistance Toilet Transfer Goal: 04-Supervision or Touching Assistance Car Transfer Goal: Walk 10' Goal: Walk 50' with Two Turns Goal: Walk 150' Goal: Walk 10' on Uneven Surface Goal: 1 Step (Curb) Goal: 4 Steps Goal: 12 Steps Goal Score: Picking Up Object Goal: Wheel 50' with Two Turns Score: Wheel 150' Goal: Anticipated discharge desti
--- NOTE | 2020-04-25 15:16 | WPDREHABHP ---
H&P: HPI History of Present Illness Date/Time: 04/25/20 15:16 Chief Complaint: is stroke involving the right temporal lobe right insular right frontoparietal deep white matter and left basal ganglia Narrative: HISTORY OF PRESENT ILLNESS: 65 years old left-handed male has been admitted to acute rehab with the primary rehab impairment category of his stroke and etiological diagnosis of acute infarcts involving the right temporal lobe, right insula, right frontoparietal deep white matter, and left basal ganglia. In addition to the history of obstructive sleep apnea, diabetes mellitus type 2, PD Linda, hypertension, and residual left-sided weakness from the previous stroke I saw the patient [id number] on April 25, 2020 at 1:30 p.m. # the patient is 65 years old left-handed male with a past medical history of obstructive sleep apnea on CPAP, type 2 diabetes mellitus, hyperlipidemia, hypertension, and 2 previous stroke with mild residual left-sided weakness, and mild expressive aphasia, tented to [facility] on April 21, 2020 complaining of new increased left-sided weakness and worsening aphasia which is started on April 20, 2020. Patient was not a candidate for tPA. 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 The patient also reported he has not been wearing his CPAP. Upon admission, the [place] WBC was [address]35 BUN was [address] of [address] Head CT scan revealed area of previous infarction without acute intracranial abnormality. MRI demonstrated acute infarcts involving the right temporal lobe, right insula, right frontoparietal deep white matter, and left basal ganglia, the patient has been taking his Eliquis daily and reported no missed doses. Marty were consulted the patient remained on Eliquis and statin. Blood studies are compatible with hyperglycemia with hemoglobin A1c of 8.2 and triglycerides of 159. Present lid the patient is covered with NovoLog 225units subcu t.i.d. with meals, along with metformin 1000 mg twice a day, sitagliptin 50 mg twice a day, and glyburide 5 mg daily. Carotid Doppler studies revealed less than 50% stenosis bilaterally. Chest x-ray revealed no acute cardiopulmonary abnormality. And echo showed ejection fraction of 50 to 55%. The patient was evaluated by speech therapy and is on regular heart healthy diet. Physical examination continued revealed left-sided neglect, aphasia, his speech difficulties, balance impairment, decreased gross motor control, and decreased safety awareness. Patient was discharged to hear CE on Eliquis 5 mg daily which she was taking routinely prior to this particular hospitalization as well. #COVID: The patient has not traveled outside the [place] or had contact with someone who is ill that has traveled outside the [place] in the past 21 days. The patient has not traveled to an area of the [place] there is experiencing known transmission of the Coronavirus and has not had close personal contact with anyone that has. The patient does not have a fever. The patient is not experiencing lower respiratory illness symptoms. COVID test was negative on April 23, 2020. # Therapy was initiated at the acute care facility and the patient was transferred to us from [facility] on April 24, 2020 FALLS OR SURGERIES: the patient has had no major surgery in the last 100 days. The patient has had 2 falls in the last year. The patient has had no falls with injury in the last year. PAST MEDICAL HISTORY: obstructive sleep apnea on CPAP, type 2 diabetes mellitus, hyperlipidemia, hypertension, expressive aphasia, cerebrovascular accident diagnosed in June of 2015 and July of 2015, pancreatitis. PAST SURGICAL HISTORY: Cardiac catheterization in 2011, cervical spine surgery x2, vein stripping, pancreatic
--- NOTE | 2020-04-25 15:49 | RPD ---
Addendum entered by Melany Dupree 04/25/20 16:16: Goal for eating is independent. Original Note: INDIVIDUALIZED PLAN OF CARE FOR Harley Hernandez Brief Synthesis of Pre-Admission Screen, Post-Admission Evaluation and Therapy Evaluations: The patient presents to rehab with acute infarcts involving the right temporal lobe, right insula, right frontoparietal deep white matter, and left basal ganglia. Comorbidities include obstructive sleep apnea on CPAP, type 2 diabetes mellitus, hyperlipidemia, hypertension, expressive aphasia, Hx of CVA in 2016 with mild residual left-side weakness, pancreatitis, hyperglycemia, elevated A1C at 8.2. . The patient needs physician monitoring and treatment of monitoring for adverse reactions to new medications, monitoring of infection, pain control, hyperlipidemia, hypertension, expressive aphasia, hyperglycemia and elevated Hgb A1c, and sleep apnea. The patient requires nursing services for frequent neuro checks, anticoagulation therapy, medication management and education, pressure relief and skin care management, monitoring of labs, bowel and bladder training, diabetes management and education, and fall/safety precautions. Deficits include:ADLs, Balance, Cognition, Endurance, Mobility, Pain Management, ROM, Safety,Speech, Strength, Swallowing, Transfers Scientist/Engineer/Case Management for: Discharge Planning and Patient/Family Counseling Physical Therapy: 5 days per week for 60 minutes for the expected length of stay. Treatments may include: Therapeutic Exercise, Gait Training, Neuromuscular Re-education, Transfer Training, Community Reintegration, Bed Mobility, Patient/Family Education, Wheelchair Mobility Group Therapy/Concurrent Therapy Rationales: -Improve attention span during functional activities in a distracted environment. -Enhance problem solving and/or adequate judgment skills during functional activities in a distracted environment. -Promote increased safety awareness in a distracted environment to reduce fall risk with functional tasks, transfers, and ambulation to allow a more safe, self-sufficient return to the home environment. -Improve dynamic balance skills to promote safety and independence with functional activities in a distracted environment for maximum gain. Occupational Therapy: 5 days per week for 60 minutes for the expected length of stay. Treatments may include: Therapeutic Exercise, Therapeutic Activity, Cognitive Training, Self-Care Transfer Training, Community Reintegration, Home Management, Patient/Family Education, Wheelchair Mobility Training, Energy Conservation Training Group Therapy/Concurrent Therapy Rationales: -Allow therapist to observe and teach generalization and carry-over of skills learned in individual therapy. -Enhance problem solving and sequencing skills during therapeutic activities in a distracted environment. -Promote increased safety awareness in a realistic setting to reduce fall risk with functional tasks due to visual and verbal distractions. -Increase functional level with ADLs, ADL transfers and use of adaptive equipment through therapeutic activities with others while promoting safety to allow a more safe, self-sufficient return home. Speech Therapy: 5 days per week for 60 minutes for the expected length of stay. Treatments may include: Dysphasia Therapy, Speech/Language/Communication Therapy, Cognitive Training, Patient/Family Education Group Therapy/Concurrent Therapy - Rationale: -Allow therapist to observe and teach generalization and carry-over of skills learned in individual therapy. -Improve comprehension skills with complex or abstract ideas through discussion in a realistic setting. -Enhance problem solving skills with complex issues during activities in a distracted environment. -Promote increased memory skills and concentration in a distracted environment for a safe transition home. -Improve attention and focus with language/communication skills in a re
--- NOTE | 2020-04-25 16:40 | PC.NURSE ---
here to visit, she expresses that patient wants to be DNR and she is in agreement, order recieved from Dr. Sanz. Victoza and Jardiance brought in, Dr. Sanz stated that he will review diabetic medication tomorrow. received orders for dulcolax and miralax PRN.
[2020-04-25] MEDS: BISACODYL 5 MG TABLET EC PO ×2 (17:30→17:34)
[2020-04-25 17:38] LABS: Glucose Point of Care 188 (65-105)
[2020-04-25 21:44] VITALS: BP 127/67; PULSE 64; RESP 18; TEMP 35.9; O2SAT 98
[2020-04-25 22:40] VITALS: PULSE 75; RESP 16; O2SAT 97
[2020-04-25 23:17] LABS: Glucose Point of Care 171 (65-105)
[2020-04-26 03:30] VITALS: PULSE 71; RESP 13; O2SAT 96
[2020-04-26 05:21] VITALS: BP 128/72; PULSE 71; RESP 18; TEMP 36.4; O2SAT 96
[2020-04-26 06:33] LABS: Glucose Point of Care 186 (65-105)
[2020-04-26] MEDS: APIXABAN 5 MG TABLET PO ×2 (08:50→17:12)
[2020-04-26] MEDS: glyBURIDE 5 MG TABLET PO (08:50)
[2020-04-26] MEDS: lisinopriL 20 MG TABLET 40 MG PO (08:50)
[2020-04-26] MEDS: FUROSEMIDE 40 MG TABLET PO (08:50)
[2020-04-26] MEDS: POTASSIUM CHLORIDE 20 MEQ TABLET.ER PO (08:51)
[2020-04-26] MEDS: ATORVASTATIN 40 MG TABLET PO (08:51)
[2020-04-26] MEDS: CELECOXIB 200 MG CAPSULE PO (08:51)
[2020-04-26] MEDS: metFORMIN HCL 500 MG TABLET 1000 MG PO ×2 (08:51→17:12)
[2020-04-26] MEDS: amLODIPine BESYLATE 5 MG TABLET PO ×2 (08:51→17:12)
[2020-04-26 14:00] VITALS: BP 136/67; PULSE 78; RESP 20; TEMP 36.6; O2SAT 96
[2020-04-26 20:05] VITALS: BP 124/60; PULSE 71; RESP 20; TEMP 36.4; O2SAT 99
[2020-04-26] MEDS: SENNA/DOCUSATE SODIUM TABLET 2 TAB PO (20:12)
[2020-04-26 21:12] LABS: Glucose Point of Care 162 (65-105)
[2020-04-27 05:16] VITALS: BP 138/74; PULSE 78; RESP 20; TEMP 36.8; O2SAT 98
[2020-04-27 06:44] LABS: Glucose Point of Care 220 (65-105)
[2020-04-27 08:00] VITALS: PULSE 97; RESP 20; O2SAT 96
[2020-04-27] MEDS: FUROSEMIDE 40 MG TABLET PO (08:26)
[2020-04-27] MEDS: CELECOXIB 200 MG CAPSULE PO (08:26)
[2020-04-27] MEDS: POTASSIUM CHLORIDE 20 MEQ TABLET.ER PO (08:26)
[2020-04-27] MEDS: metFORMIN HCL 500 MG TABLET 1000 MG PO ×2 (08:27→17:28)
[2020-04-27] MEDS: APIXABAN 5 MG TABLET PO ×2 (08:27→17:28)
[2020-04-27] MEDS: ATORVASTATIN 40 MG TABLET PO (08:27)
[2020-04-27] MEDS: amLODIPine BESYLATE 5 MG TABLET PO ×2 (08:27→17:29)
[2020-04-27] MEDS: glyBURIDE 5 MG TABLET PO (08:27)
[2020-04-27] MEDS: lisinopriL 20 MG TABLET 40 MG PO (08:27)
--- NOTE | 2020-04-27 10:56 | PC.NURSE ---
Called nursing animal care supervisor because of negative comments patient was making and animal care supervisor went in to talk to patient and also talked with patient's . Will continue to monitor.
--- NOTE | 2020-04-27 11:55 | PC.NURSE ---
brought in patient's own cell phone and railroad dining car steward/stewardess and case for phone.
[2020-04-27 14:00] VITALS: BP 110/71; PULSE 97; RESP 20; TEMP 36.2; O2SAT 96
[2020-04-27 16:53] LABS: Glucose Point of Care 192 (65-105)
[2020-04-27 20:00] VITALS: PULSE 74; RESP 15; O2SAT 97
[2020-04-27 21:57] VITALS: PULSE 74; RESP 15; O2SAT 97
[2020-04-27 22:00] VITALS: BP 109/55; PULSE 85; RESP 16; TEMP 36.2; O2SAT 99
[2020-04-28 02:24] VITALS: PULSE 71; RESP 16; O2SAT 96
[2020-04-28 06:00] VITALS: BP 144/92; PULSE 76; RESP 20; TEMP 36.3; O2SAT 99
[2020-04-28 07:08] LABS: Glucose Point of Care 245 (65-105)
[2020-04-28 08:00] VITALS: PULSE 76; RESP 20; O2SAT 99
[2020-04-28] MEDS: lisinopriL 20 MG TABLET 40 MG PO (09:03)
[2020-04-28] MEDS: ATORVASTATIN 40 MG TABLET PO (09:03)
[2020-04-28] MEDS: FUROSEMIDE 40 MG TABLET PO (09:03)
[2020-04-28] MEDS: CELECOXIB 200 MG CAPSULE PO (09:03)
[2020-04-28] MEDS: APIXABAN 5 MG TABLET PO ×2 (09:03→17:53)
[2020-04-28] MEDS: amLODIPine BESYLATE 5 MG TABLET PO ×2 (09:03→17:53)
[2020-04-28] MEDS: metFORMIN HCL 500 MG TABLET 1000 MG PO ×2 (09:04→17:53)
[2020-04-28] MEDS: POTASSIUM CHLORIDE 20 MEQ TABLET.ER PO (09:04)
[2020-04-28] MEDS: glyBURIDE 5 MG TABLET PO (09:04)
[2020-04-28] MEDS: TOLNAFTATE 1% POWDER 45 GM BTL 1 APPLIC TOPICAL ×2 (12:21→20:30)
[2020-04-28 14:00] VITALS: BP 122/95; PULSE 92; RESP 20; TEMP 36.3; O2SAT 99
--- NOTE | 2020-04-28 14:27 | WPDNEURORHBP ---
Subjective Date/time seen: 04/28/20 14:27 65 years old left-handed with stroke and documented diagnosis of acute infarct involving the right temporal lobe right insula right frontoparietal deep white matter and left basal ganglia in addition to the history of obstructive sleep apnea, diabetes mellitus type 2, hypertension, no new lab,blood sugar checked 245 and receiving glyburide 5 mg daily with sitagliptin 50 mg twice a day metformin 1000 mg twice a day, remains afebrile temp of 36.3? pulse 92 respiration 20 pulse ox 99 on the room air and a blood pressure 122/95 that is borderline diastolic Review of Systems Review of Systems: All systems reviewed & are unremarkable except as noted in HPI and below Functional Status Ambulation Ability Ability to Ambulate 10 Feet: Contact Guard Ability to Ambulate 50 Feet With 2 Turns: Contact Guard Ability to Ambulate 150 Feet: Contact Guard Ambulation Assistive Devices: Walker, Wheeled Transfers Ability Ability to Transfer In/Out of Chair: Contact Guard Exam Const: General: cooperative, comfortable and no acute distress Nutritional Appearance: overweight Orientation/consciousness: patient oriented x3 Limitations: no limitations HENMT: Head: normocephalic Ears: hearing grossly normal bilaterally General nose exam: Normal external nose present and No nasal discharge present Face and sinus: normal facial exam Mouth: Yes Normal oral and palatal mucosa present and Yes tongue normal Eyes: General: appearance normal, both eyes and all related structures Neck: Neck: full ROM Chest: Chest palpation & inspection: normal inspection of the chest Resp: Effort & Inspection: normal respiratory effort Auscultation: clear to auscultation bilaterally Cardio: Jugular venous distension: no JVD Rate: regular rate Rhythm: regular rhythm GI: Auscultation: normal bowel sounds Skin: General skin exam: no rashes or lesions noted Neuro: General: patient oriented x3 Cranial nerves: Yes CN's II-XII intact bilaterally Cognition (Neuro): normal cognition Speech: normal speech Motor exam (neuro): Abnormal motor strength present Deep tendon reflexes (DTR's): Right triceps reflex intensity grade: 2+, Left triceps reflex intensity grade: 1+, Rt Biceps (C5, C6): 2+, Left biceps reflex intensity grade: 1+, Right brachioradialis reflex intensity grade: 2+, Left brachioradialis reflex intensity grade: 1+, Right patellar reflex intensity grade: 2+, Left patellar reflex intensity grade: 1+, Right ankle reflex intensity grade: 2+ and Left ankle reflex intensity grade: 1+ Plantar Reflex Responses: downgoing: right and upgoing (positive Babinski): left Psych: Appearance: grossly normal Affect: normal affect Attitude: cooperative Thought process: Normal thought process present Thought content: Yes Normal thought content present Insight: Fair insight present (Psych) Judgement: Fair judgement present (Psych) Objective Data Vital Signs Vital Signs: Vital Signs - 24 hr 04/27/20 20:00 04/27/20 21:57 04/27/20 22:00 Temperature 36.2 C L Pulse Rate 74 74 85 Respiratory Rate 15 15 16 Blood Pressure 109/55 L Pulse Oximetry 97 97 99 04/28/20 02:24 04/28/20 06:00 04/28/20 08:00 Temperature 36.3 C L Pulse Rate 71 76 76 Respiratory Rate 16 20 20 Blood Pressure 144/92 H Pulse Oximetry 96 99 99 04/28/20 14:00 Temperature 36.3 C L Pulse Rate 92 Respiratory Rate 20 Blood Pressure 122/95 H Pulse Oximetry 99 Intake/Output Intake/Output: Intake & Output 04/25/20 04/26/20 04/27/20 04/28/20 23:59 23:59 23:59 23:59 Intake Total 480 840 480 600 Balance 480 840 480 600 Meds/Results Medications: Active Medications Generic Name Dose Route Start Last Admin Trade Name Freq PRN Reason Stop Dose Admin Amlodipine Besylate 5 mg 04/24/20 17:00 04/28/20 09:03 Amlodipine Besylate 5 Mg Tablet PO 5 mg BID JOSÉ ANTONIO Administration Apixaban 5 mg 04/24/20 17:00 04/28/20 09:03 Apixaban 5 Mg Tab
--- NOTE | 2020-04-28 15:38 | PHAR ---
HOME MEDS VERIFIED = [facility] RX [id number] JARDIANCE 25MG 1 TAB PO DAILY RX [id number] VICTOZA PREFILLED SYRINGE 18MG/3 ML 1.8 MG SQ DAILY
[2020-04-28 15:48] VITALS: BMI 44.5
[2020-04-28 16:33] LABS: Glucose Point of Care 225 (65-105)
[2020-04-28 21:16] VITALS: PULSE 84; O2SAT 97
[2020-04-28 22:00] VITALS: BP 132/87; PULSE 72; RESP 16; TEMP 36.3; O2SAT 100
[2020-04-29 06:00] VITALS: BP 134/84; PULSE 77; RESP 18; TEMP 36.2; O2SAT 100
[2020-04-29 06:55] LABS: Glucose Point of Care 234 (65-105)
[2020-04-29] MEDS: FUROSEMIDE 40 MG TABLET PO (07:57)
[2020-04-29] MEDS: POTASSIUM CHLORIDE 20 MEQ TABLET.ER PO (07:57)
[2020-04-29] MEDS: amLODIPine BESYLATE 5 MG TABLET PO ×2 (07:57→17:40)
[2020-04-29] MEDS: lisinopriL 20 MG TABLET 40 MG PO (07:57)
[2020-04-29] MEDS: metFORMIN HCL 500 MG TABLET 1000 MG PO ×2 (07:58→17:40)
[2020-04-29] MEDS: glyBURIDE 5 MG TABLET PO (07:58)
[2020-04-29] MEDS: APIXABAN 5 MG TABLET PO ×2 (07:58→17:40)
[2020-04-29] MEDS: ATORVASTATIN 40 MG TABLET PO (07:58)
[2020-04-29] MEDS: CELECOXIB 200 MG CAPSULE PO (07:58)
[2020-04-29] MEDS: TOLNAFTATE 1% POWDER 45 GM BTL 1 APPLIC TOPICAL ×2 (07:59→21:03)
[2020-04-29 08:00] VITALS: PULSE 77; RESP 18; O2SAT 100
[2020-04-29] MEDS: CHOLESTYRAMINE LIGHT 4 GM POWD.PACK PO (10:04)
--- NOTE | 2020-04-29 13:05 | WPDNEURORHBP ---
Subjective Date/time seen: 04/29/20 13:05 65 years old left-handed with stroke documented infarct involving the right temporal lobe ,right insula, right frontoparietal deep white matter and left basal ganglia in addition to the history of obstructive sleep apnea, diabetes mellitus, and hypertension, blood sugar fluctuating, vital signs stable including the blood pressure 134/84, wants to go home as soon as possible situation discussed in the family meeting with his as well andhe will be discharged tomorrow. Review of Systems Review of Systems: All systems reviewed & are unremarkable except as noted in HPI and below Functional Status Ambulation Ability Ability to Ambulate 10 Feet: Contact Guard Ability to Ambulate 50 Feet With 2 Turns: Contact Guard Ability to Ambulate 150 Feet: Contact Guard Ambulation Assistive Devices: Walker, Wheeled Transfers Ability Ability to Transfer In/Out of Chair: Contact Guard Exam Const: General: cooperative, comfortable, no acute distress, well developed, alert, awake and anxious Nutritional Appearance: overweight Orientation/consciousness: patient oriented x3 Limitations: no limitations HENMT: Head: normocephalic Ears: hearing grossly normal bilaterally General nose exam: Normal external nose present and No nasal discharge present Face and sinus: normal facial exam Mouth: Yes Normal oral and palatal mucosa present Eyes: General: appearance normal, both eyes and all related structures Neck: Neck: full ROM Resp: Effort & Inspection: normal respiratory effort Auscultation: clear to auscultation bilaterally Cardio: Jugular venous distension: no JVD Rate: regular rate Rhythm: regular rhythm GI: Auscultation: normal bowel sounds Neuro: General: patient oriented x3 and moves all extremities Cranial nerves: Yes CN's II-XII intact bilaterally Cognition (Neuro): normal cognition Gait exam (Neuro): Normal gait present Motor exam (neuro): Pronator motor function not present Sensory Exam: Sensory deficit (Neuro) Deep tendon reflexes (DTR's): Right triceps reflex intensity grade: 1+, Left triceps reflex intensity grade: 1+, Rt Biceps (C5, C6): 1+, Left biceps reflex intensity grade: 1+, Right brachioradialis reflex intensity grade: 1+, Left brachioradialis reflex intensity grade: 1+, Right patellar reflex intensity grade: 1+, Left patellar reflex intensity grade: 1+, Right ankle reflex intensity grade: 0 and Left ankle reflex intensity grade: 0 Plantar Reflex Responses: downgoing: bilateral Coordination: subute-rv-[id number] test normal Extrem: General: full ROM Psych: Appearance: grossly normal Speech and movement: Normal speech and movement present Affect: Sad affect present Attitude: cooperative Thought process: Normal thought process present Thought content: Yes Normal thought content present Insight: Fair insight present (Psych) Judgement: Fair judgement present (Psych) Objective Data Vital Signs Vital Signs: Vital Signs - 24 hr 04/28/20 14:00 04/28/20 21:16 04/28/20 22:00 Temperature 36.3 C L 36.3 C L Pulse Rate 92 84 72 Respiratory Rate 20 16 Blood Pressure 122/95 H 132/87 Pulse Oximetry 99 97 100 04/29/20 06:00 04/29/20 08:00 Temperature 36.2 C L Pulse Rate 77 77 Respiratory Rate 18 18 Blood Pressure 134/84 Pulse Oximetry 100 100 Intake/Output Intake/Output: Intake & Output 04/26/20 04/27/20 04/28/20 04/29/20 23:59 23:59 23:59 23:59 Intake Total 840 480 600 240 Balance 840 480 600 240 Meds/Results Medications: Active Medications Generic Name Dose Route Start Last Admin Trade Name Freq PRN Reason Stop Dose Admin Amlodipine Besylate 5 mg 04/24/20 17:00 04/29/20 07:57 Amlodipine Besylate 5 Mg Tablet PO 5 mg BID JOSÉ ANTONIO Administration Apixaban 5 mg 04/24/20 17:00 04/29/20 07:58 Apixaban 5 Mg Tablet PO 5 mg BID JOSÉ ANTONIO Administration Atorvastatin Calcium 40 mg 04/25/20 09:00 04/29/20 07:58 Atorvastatin 40 Mg Tablet PO 40 mg
[2020-04-29 14:00] VITALS: BP 127/78; PULSE 92; RESP 20; TEMP 36.1; O2SAT 97
[2020-04-29 17:31] LABS: Glucose Point of Care 161 (65-105)
[2020-04-29 20:20] VITALS: PULSE 80; RESP 22; O2SAT 99
[2020-04-29] MEDS: SENNA/DOCUSATE SODIUM TABLET 2 TAB PO (21:02)
[2020-04-29 21:03] VITALS: BP 108/84; PULSE 80; RESP 22; TEMP 36.1; O2SAT 99
[2020-04-29 23:25] VITALS: PULSE 79; O2SAT 98
[2020-04-30 05:36] VITALS: BP 117/60; PULSE 71; RESP 24; TEMP 36.1; O2SAT 99
[2020-04-30 06:53] LABS: Glucose Point of Care 219 (65-105)
[2020-04-30] MEDS: POTASSIUM CHLORIDE 20 MEQ TABLET.ER PO (08:42)
[2020-04-30] MEDS: glyBURIDE 5 MG TABLET PO (08:42)
[2020-04-30] MEDS: APIXABAN 5 MG TABLET PO (08:42)
[2020-04-30] MEDS: amLODIPine BESYLATE 5 MG TABLET PO (08:42)
[2020-04-30] MEDS: lisinopriL 20 MG TABLET 40 MG PO (08:42)
[2020-04-30] MEDS: CELECOXIB 200 MG CAPSULE PO (08:43)
[2020-04-30] MEDS: ATORVASTATIN 40 MG TABLET PO (08:43)
[2020-04-30] MEDS: metFORMIN HCL 500 MG TABLET 1000 MG PO (08:43)
[2020-04-30] MEDS: FUROSEMIDE 40 MG TABLET PO (08:43)
[2020-04-30] MEDS: TOLNAFTATE 1% POWDER 45 GM BTL 1 APPLIC TOPICAL (08:51)
[2020-04-30] MEDS: CHOLESTYRAMINE LIGHT 4 GM POWD.PACK PO (09:35)
[2020-04-30 11:27] LABS: Glucose Point of Care 124 (65-105)
[2020-04-30 14:00] VITALS: BP 122/67; PULSE 79; RESP 20; TEMP 36.5; O2SAT 98
--- NOTE | 2020-05-02 15:06 | PM.DS ---
DS: Admitting Diagnosis Admitting Diagnosis Admitting Diagnosis: left hemiparesis DS: Summary Hospital Course Hospital Course: remained stable continuously involved in therapy and made significant improvement Time Spent with Patient Time attestation: Total time spent providing and/or coordinating discharge services:ADMISSION FUNCTION: 65 years old left-handed male admitted to acute rehab with primary rehab impairment category of stroke and etiological diagnosis of acute infarcts involving the right temporal lobe, right insula, right frontoparietal deep white matter, and left basal ganglia, In addition to the history of 1. Obstructive sleep apnea 2. Diabetes mellitus 3. Hypertension 4. Left-sided weakness from the previous stroke as well. at the time of admission as per the information available patient's functional measures were as follows. Eating [Set Up Only] Oral Care substantial or maximal assistance Toileting Hygiene substantial or maximal assistance Shower/Bathing substantial or maximal assist Upper Body Dressing partial assistant department manager Lower Body Dressing substantial or maximal assist Donning/[place] Footwear dependent Rolling Left and Right partial assisted Sit to Lying partial assistance Lying to Sitting partial assistance Sit to Stand partial assistance Bed to Chair Transfers partial assistance Toilet Transfers partial assistance Car Transfers partial assisted Walking 10' partial assist Walking 50' with Two Turns unable Walking 150' [ unable Curb or Step unable 4 Steps unable 12 steps unable Picking Up Object substantial or maximal assistance [Wheelchair Mobility 50'] supervision [Wheelchair Mobility 150'] unable GOALS: Eating [INDEPENDENT] Oral Care [INDEPENDENT] Toileting Hygiene supervision Shower/Bathing supervision Upper Body Dressing [INDEPENDENT] Lower Body Dressing supervision Donning/[place] Footwear supervision Rolling Left and Right [INDEPENDENT] Sit to Lying [INDEPENDENT] Lying to Sitting [INDEPENDENT] Sit to Stand supervision Bed to Chair Transfers supervision Toilet Transfers supervision Car Transfers supervision Walking 10' supervision Walking 50' with Two Turns supervision Walking 150' supervision Curb or Step supervision 4 Steps supervision 12 Steps not applicable Picking Up Object supervision set up [Wheelchair Mobility 150'] [INDEPENDENT] DISCHARGE PERFORMANCE: Eating [INDEPENDENT] Oral Care set up Toileting Hygiene partial or mod assist Shower/Bathing partial or mod assist Upper Body Dressing set up Lower Body Dressing supervision Donning/[place] Footwear supervision Rolling Left and Right [INDEPENDENT] Sit to Lying [INDEPENDENT] Lying to Sitting [INDEPENDENT] Sit to Stand supervision Bed to Chair Transfers supervision Toilet Transfers supervision Car Transfers supervision Walking 10' supervision Walking 50' with Two Turns supervision Walking 150' supervision Curb or Step supervision 4 Steps supervision 12 Steps unable Picking Up Object supervision [Wheelchair Mobility 50'] super vision [Wheelchair Mobility 150'] supervision # during the hospitalization patient remained actively involved in the physical therapy and occupational therapy, remained afebrile and normotensive, prior to the discharge was able to ambulate 150ft with contact guard and revealed walker and was able to transfer in and out of chair with contact guard as well. The patient had [no falls]. last blood sugar was 124 and no radiological investigations were carried out during this stay. during the entire hospitalization patient had no falls and no injuries and also was not seen by any other consultants he was discharged to his home with home health. Discharge Plan Discharge Attending physician on discharge: Vasiliy Sanz Discharging Clinician: Vasiliy Sanz Anticipated Discharge Date/Time: 04/30/20 13:00 Patient Disposition: Home Health Service Diet: diabetic Wound Care
== END 2020-04-30 15:00 | disposition home health service (06) | DRG 57 ==
PROVIDERS: Admitting Provider Psychiatry & Neurology Neurology; PCP Family Medicine; Visit Provider Psychiatry & Neurology Neurology
DX: I69.352 Hemiplegia and hemiparesis following cerebral infarction affecting left dominant side (principal); Z68.41 Body mass index [BMI] 40.0-44.9, adult; I69.320 Aphasia following cerebral infarction; I65.23 Occlusion and stenosis of bilateral carotid arteries; E78.5 Hyperlipidemia, unspecified; E11.65 Type 2 diabetes mellitus with hyperglycemia; E66.01 Morbid (severe) obesity due to excess calories; G47.33 Obstructive sleep apnea (adult) (pediatric); I10 Essential (primary) hypertension; Z79.01 Long term (current) use of anticoagulants
CPT/HCPCS: 36415; 80048; 82948; 85025; 92507; 92523; 97110; 97116; 97161; 97165; 97530; 97535; 97542; A9270

== ENCOUNTER 2020-05-23 17:25 | Outpatient (CLI) | payer BC, SELFPAY | END 2020-05-23 17:26 | disposition home or self-care (01) | LOC: ANHCOVIDVC 17:25 | PROVIDERS: PCP Family Medicine | DX: Z23 Encounter for immunization (principal) | CPT/HCPCS: 0001A; 91300 ==

== ENCOUNTER 2020-06-13 17:25 | Outpatient (CLI) | payer BC, SELFPAY | END 2020-06-13 17:26 | disposition home or self-care (01) | LOC: ANHCOVIDVC 17:25 | PROVIDERS: PCP Family Medicine | DX: Z23 Encounter for immunization (principal) | CPT/HCPCS: 0002A; 91300 ==

== ENCOUNTER 2020-10-03 10:30 | Outpatient (RCR) | payer BC, SELFPAY ==
--- NOTE | 2020-09-03 15:44 | PTOPEVAL ---
Thank you for referring Harley Hernandez to [facility].? The patient is scheduled to be seen for therapy? 2 x/week for 8 weeks. Please review, sign, date and return this plan of care HARLEEN. I agree with and certify that the following plan of care is medically necessary. Referring Physician Date Attending Provider: Aris Ardon, DO Problem Diagnosis OA of left knee with s/p TKR Onset 07/29/20 Additional Evaluation Detail Pt is s/p TKR on 07/29/20 with home health services. He had a stroke in Apr with home health therapy. The CVA contributed to his left knee pain. Expressive and receptive aphasia. Subjective Information He has been using a walker Query Text:As Reported By Patient/ since Apr 2020 due to left LE Family weakness. He reports limitations with walking, prolonged standing, ADL's. 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 He is walking very limited distance without AD. Pt likes to sit outside on patio during the day, but has been limited since surgery. Information on funciton provided by . Prior Level of Function Home Setting Home Type House Environmental Barriers Railing, None,Stairs, 2-4, Stairs, Greater than 4 Living Situation With Spouse Support Available Local Family Support Mobility Assistive Devices (Used Last 3 Walker, Wheeled Months) Comments Additional Prior Level of Function Lives with in a house Comments with 2 [place] without railing and 5 steps to backyard/deck area . Pain Assessment Timing of Pain Assessment Timing of Pain Assessment Assessment Pain Scale Pain Scale Used Numeric (1 - 10) Self Report Pain Assessment Left Knee(s) Reported Pain Level 2 Pain Description Soreness Pain Frequency Continuous Lowest Pain Intensity 1 Greatest Pain Intensity 4 Pain Aggravating Factors ADL's,Exercise/Activity, Walking,Weight Bearing/ Standing Pain Score Pain Score 2: Self Report Interventions Used Interventions Used By Clinicians Education,Exercise Lower Extremity Range of Motion Knee Range of Motion Right Knee Flexion Rang
--- NOTE | 2020-10-03 11:30 | PTOPEVAL ---
Thank you for referring Harley Hernandez to [facility].? Harley has attended 8 therapy visits to address left leg impairments related to s/p TKR. He demonstrates improved range, strength and functional mobility. His goals are partially achieved. He is requesting therapy to be DC at this time. Please review, sign, date and return this discharge summary HARLEEN. I agree with and certify that the following plan of care is medically necessary. Referring Physician Date Attending Provider: Aris Ardon, DO Physical Therapy Discharge Summary Diagnosis OA of left knee with s/p TKR Onset 07/29/20 Additional Evaluation Detail Pt is s/p TKR on 07/29/20 with home health services. He had a stroke in Apr with home health therapy. The CVA contributed to his left knee pain. Expressive and receptive aphasia. Subjective Information He intermittently uses the Query Text:As Reported By Patient/ cane at home. He uses the cane Family when outside. He denies any loss of balance, but he does feel decreased balance due to uneven surfaces. He reports slight improved ability to get out of a chair or tolerance with walking. He feels therapy treatment last week increased his right knee pain when attempted to perform exercises on his stomach. He request therapy services to be finished. Pain Assessment Left Knee(s) Reported Pain Level 1 Pain Frequency Continuous Lowest Pain Intensity 1 Greatest Pain Intensity 4 Lower Extremity Range of Motion Knee Range of Motion Left Knee Flexion Range of Motion - Active 115 Knee Extension Range of Motion - Active -15 Knee Range of Motion Limitations Pain,Soft Tissue Restriction Lower Extremity Muscle Strength Testing Hip Strength Left Hip Flexion Strength 4+ Good + Hip Extension Strength 4- Good - Hip Abduction Strength 2 Poor Hip Adduction Strength 2+ Poor + Hip Strength Comments hip ext tested sitting Knee Strength Left Knee Flexion Strength 4 Good Knee Extension Strength 5 Normal Knee Strength Comments hamstring tested seated Extremity Circumference Assessment Location Left Body Part Knee Site Descriptor ([place]) superior patella Circumference (cm) 56 Noninvolved Side Circumferen
== END 2020-11-19 11:58 | disposition home or self-care (01) ==
LOC: ANHPT 10:30
PROVIDERS: PCP Family Medicine; Visit Provider Orthopaedic Surgery
DX: Z47.1 Aftercare following joint replacement surgery (principal); Z96.652 Presence of left artificial knee joint
CPT/HCPCS: 97110; 97116; 97140; 97162

== ENCOUNTER 2022-08-28 04:35 | Emergency (ER) | payer BC, MEDICARE, SELFPAY ==
[2022-08-28] VITALS (9 sets, daily range): BP systolic 147–178; BP diastolic 80–98; PULSE 73–108; RESP 15–18; TEMP 36.4; O2SAT 96–99
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
[2022-08-28] MEDS: TETANUS,DIPHTHERIA,AC PERTUSSIS ADULT (0.5 ML) BOOSTRIX IM (04:50)
[2022-08-28] MEDS: DACRIOSE EYE IRRIGATION 118 ML BOTTLE (05:01)
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
== END 2022-08-28 07:30 | disposition home or self-care (01) ==
PROVIDERS: Emergency Provider Emergency Medicine; PCP Family Medicine
DX: S00.81XA Abrasion of other part of head, initial encounter (principal); S05.01XA Injury of conjunctiva and corneal abrasion without foreign body, right eye, initial encounter; Z23 Encounter for immunization; I10 Essential (primary) hypertension; E78.5 Hyperlipidemia, unspecified; E11.9 Type 2 diabetes mellitus without complications; Q62.5 Duplication of ureter; G47.33 Obstructive sleep apnea (adult) (pediatric); Z86.73 Personal history of transient ischemic attack (TIA), and cerebral infarction without residual deficits; Z96.652 Presence of left artificial knee joint; Z87.891 Personal history of nicotine dependence; Z79.85 Long-term (current) use of injectable non-insulin antidiabetic drugs; Z79.84 Long term (current) use of oral hypoglycemic drugs; Z79.01 Long term (current) use of anticoagulants; W25.XXXA Contact with sharp glass, initial encounter
CPT/HCPCS: 70486; 90471; 90715; 99284; A9270

== ENCOUNTER 2022-12-08 19:21 | Inpatient (IN) | payer BC, MEDICARE, SELFPAY ==
--- NOTE | ~2022-12-08 | CT_ITS ---
EXAMINATION: CT brain wo con INDICATION: Altered mental status COMPARISON: 05/11/2020 TECHNIQUE: Standard unenhanced head CT. The dose-length product (DLP) was 681.00 mGy-cm. The mA was a djusted according to patient size. Iterative reconstruction technique was employed. FINDINGS: No acute intraparenchymal hemorrhage. No evidence of mass lesion. There is an old infarct o f the right temporal lobe. There are old infarcts of the left basal ganglia. There has been interval development of a small focus of encephalomalacia posteriorly in the right parietal lobe with interval infarct. No evidence of acute infarction. There is mild periventricular and subcortical hypodensity probably related to small vessel ischemic disease. There is mild prominence of the sulci and ventricl es related to cerebral atrophy. Intracranial calcified cerebral atherosclerosis is noted. No extra-ax ial collections. No mass effect or midline shift. The orbits and soft tissues are unremarkable. There is mild mucosal thickening of the paranasal sinuses. IMPRESSION: 1. No acute intracranial abnormality. 2. Age related findings. Reviewed, dictated and finalized at location F.
--- NOTE | ~2022-12-08 | MR_ITS ---
EXAMINATION: MR foot LT wo/w con DATE: 12/09/2022 17:12 INDICATION: Wound at the plantar aspect of the second and third toes TECHNIQUE: Magnetic resonance imaging (MRI) of the without and with 20 mL Multihance fore/mid foot wa s performed without intravenous contrast. Sequences included axial, sagittal and coronal T1-weighted FSE, sagittal fluid sensitive FSE STIR, axial and coronal T2-weighted FS FSE, axial T1-weighted FS FS E and postcontrast axial T1-weighted FS FSE. COMPARISON: None FINDINGS: Bone alignment is normal. No fracture. Mild polyarticular osteoarthritis at the naviculocuneiform, ta rsal metatarsal, first metatarsophalangeal and multiple interphalangeal joints. There are few scatter ed foci of subarticular edema-like signal change likely related to overlying chondromalacia at severa l of the joints in the midfoot and at the first metatarsal fibular sesamoid. Marrow signal is otherwi se normal. No lesion suspicious for osteomyelitis. No joint effusions. There is laxity with undulatin g course of the flexor digitorum longus tendons extending to the third and fourth toes at the level o f the metatarsal diaphyses consistent with a more distal tear. The distal tear margins of both the th ird and fourth flexor digitorum longus tendons appear to be located at the level of the diaphysis of the third proximal phalanx. The remaining flexor digitorum longus tendons as well as the flexor digit orum brevis tendons remain intact. There is diffuse feathery muscular edema and somewhat heterogeneou s mild to moderate fatty atrophy of the intrinsic musculature of the foot consistent with likely acut e on chronic innervation changes in the setting of diabetic neuropathy. There is some subcutaneous ed patricia over the dorsum of the forefoot. No abscess. IMPRESSION: 1. No evident osteomyelitis, septic arthritis or abscess. 2. Tears of the flexor digitorum longus tendons to the third and fourth toes. 3. Mild polyarticular osteoarthritis in the mid and forefoot. Reviewed, dictated and finalized at location A.
--- NOTE | ~2022-12-08 | XR_ITS ---
EXAMINATION: XR knee LT 3V DATE: 12/08/2022 22:06 INDICATION: Left knee pain and redness TECHNIQUE: Three views of the left knee were obtained. COMPARISON: 07/17/2007 FINDINGS: There are changes of interval knee arthroplasty. There is a moderate-sized knee joint effus ion. There is soft tissue swelling surrounding the knee. Calcified atherosclerosis is noted. IMPRESSION: 1. Moderate size knee joint effusion with soft tissue swelling surrounding the knee. 2. Interval arthroplasty. Reviewed, dictated and finalized at location F.
--- NOTE | ~2022-12-08 | CT_ITS ---
EXAMINATION: CT abdomen pelvis w con INDICATION: Abdominal pain TECHNIQUE: Computed tomographic images of the abdomen and pelvis were obtained after the administrati on of 100 cc of Omnipaque 350 intravenous contrast. The dose-length product (DLP) was 2195.51 mGy-cm. Automated exposure control and iterative reconstruction technique were employed. COMPARISON: 04/03/2018 FINDINGS: There are minimal airspace opacities in the caudal portion of the visualized right upper lo be. Calcified pulmonary nodules and calcified right hilar lymph nodes are consistent with old granulo matous disease. There are small pleural effusions. Calcified coronary artery atherosclerosis is noted . The heart size is normal. Punctate calcifications in an otherwise normal spleen likely represent he aled granulomatous disease. The liver is diffusely low in attenuation when compared with the spleen, consistent with hepatic steatosis. The pancreas, gallbladder, and adrenal glands are normal. Cysts of the kidneys measure up to 1.4 cm on the left. There is a mildly enlarged left external iliac chain l ymph node. No free intraperitoneal gas or evidence of bowel obstruction. The appendix is normal. Ther e are bridging osteophytes at multiple levels in the lower thoracic spine, consistent with diffuse id iopathic skeletal hyperostosis (DISH). IMPRESSION: 1. Minimal airspace opacities in the partially visualized right upper lobe, consistent with pneumonia . 2. Small pleural effusions. 3. Diffuse hepatic steatosis Reviewed, dictated and finalized at location F. IMPRESSION: 1. Minimal airspace opacities in the partially visualized right upper lobe, con sistent with pneumonia. 2. Small pleural effusions. 3. Diffuse hepatic steatosis
--- NOTE | ~2022-12-08 | XR_ITS ---
EXAMINATION: XR chest 1V INDICATION: Weakness and fever TECHNIQUE: Frontal view of the chest is obtained. COMPARISON: 04/21/2020 FINDINGS: The lungs are free of acute opacities. No pleural effusion or pneumothorax. There are parti ally imaged changes of fusion procedure in the cervical spine. A calcified loose bodies noted in the right shoulder joint. IMPRESSION: 1. No acute cardiopulmonary abnormality. Reviewed, dictated and finalized at location F.
--- NOTE | 2022-12-08 19:40 | ECG_ITS ---
Measurements Intervals [place] Rate: 118 P: -2 HI: 133 QRS: 42 QRSD: 118 T: -10 QT: 316 QTc: 444 Interpretive Statements SINUS TACHYCARDIA INCOMPLETE LEFT BUNDLE BRANCH BLOCK MINIMAL Q WAVES- INFERIOR LEADS BORDERLINE ST-T WAVE ABNORMALITY- INFERIOR LEADS BASELINE ARTIFACT- I, II, III, AVR, AVL, AVF, V4-V6 ABNORMAL ECG NO PREVIOUS ECG AVAILABLE FOR COMPARISON Electronically Signed On 12-09-2022 6:18:57 CDT by Eliezer Evans D.O.
[2022-12-08 19:41] VITALS: BP 165/77; PULSE 121; RESP 20; TEMP 38.4; O2SAT 97
[2022-12-08] MEDS: SODIUM CHLORIDE 0.9% IV 1,000 ML 999 ML IV CONT ×3 (19:56→21:46)
[2022-12-08] MEDS: ACETAMINOPHEN 500 MG TABLET 1000 MG PO (19:56)
[2022-12-08 20:17] LABS: Appearance Urine Clear (Clear); Basophils Percent Auto 0.2 % (0.2-1.2); Bilirubin Urine Negative (Negative); Blood Urine Negative (Negative); Color Urine Yellow (Yellow); Glucose Urine UA 3+ mg/dL (Negative); Hematocrit 47.9 % (42.0-52.0); Hemoglobin 16.1 g/dL (14.0-18.0); Immature Granulocyte Absolute 0.19 K/mm3 (0.00-0.031); Ketones Urine 2+ mg/dL (Negative); Leukocyte Esterase Ur Negative LEU/UL (Negative); Lymphocytes Percent Auto 2.1 % (18.3-44.2); Mean Corpuscular HGB Conc 33.6 g/dl (32-36); Mean Corpuscular Hemoglobin 31.8 pg (26-34); Mean Corpuscular Volume 94.7 fl (80-100); Mean Platelet Volume 9.2 fl (7.4-10.4); Monocytes Absolute Auto 0.7 K/mm3 (0.1-0.6); Monocytes Percent Auto 3.6 % (2.6-8.5); Neutrophils Absolute Auto 17.9 K/mm3 (1.3-6.7); Neutrophils Percent Auto 93.1 % (45.5-73.1); Nitrate Urine Negative (Negative); Platelet Count Result 174 k/mm3 (150-375); Protein Urine Negative (Negative); Red Blood Count 5.06 M/mm3 (4.6-6.20); Red Cell Distribution Width 13.2 % (11.5-14.5); Urobilinogen Urine 0.2 mg/dL (<2.0); White Blood Count 19.2 K/mm3 (4.5-10.0); pH Urine 5.5 (5.0-9.0)
[2022-12-08 20:18] LABS: Specific Grav Ur 1.036 (1.001-1.035)
[2022-12-08 20:20] LABS: Add Urine Microscopic? NO
[2022-12-08 20:29] LABS: INR 1.1; Prothrombin Time 14.9 Seconds (11.1-14.7)
--- NOTE | 2022-12-08 20:40 | ED.GENADULT ---
HPI - General Adult General Chief complaint: Weakness Stated complaint: weakness Time Seen by Provider: 12/08/22 19:30 History of Present Illness HPI narrative: Patient is a 67-year-old gentleman who presents the emergency department with chief complaint of generalized weakness. Patient has history of multiple strokes and reports that today he was weaker than normal and that the family had to assist him with ambulation patient laid down and slept for several hours and the family noticed whenever he got up he cannot slid to the ground patient was unable to get up under his own power the family had to slide them around the patient reports really no pain family reports he has had no coughing no recent known exposure to COVID or flu the patient has had frequent urination and has difficulty controlling his urination that has had since previous stroke. Related Data Home Medications Medication Instructions Recorded Confirmed oxybutynin chloride 10 mg 10 mg PO DAILY 04/22/22 08/30/22 tablet,extended release 24 hr tamsulosin 0.4 mg capsule 0.4 mg PO DAILY 10/13/22 Allergies Allergy/AdvReac Type Severity Reaction Status Date / Time pregabalin Allergy Unknown Unknown Verified 12/08/22 19:45 rivaroxaban Allergy Unknown Headache,Un Verified 12/08/22 19:45 known Review of Systems Review of Systems: A 10 system review of systems was completed on the patient and is negative except for what is stated in the HPI. Nursing and ancillary documentation was reviewed. [facility] Past Medical History Medical History Cerebrovascular accident CVA in June 2015 and July 2015 presenting with expressive aphasia (improved) and mild residual left-sided weakness. 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 DAVID was negative for cardioembolic source. He has been on Eliquis since that time. 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 Hyperlipidemia Hypertension Obstructive sleep apnea on CPAP Patient states he has not been wearing his CPAP. Type 2 diabetes mellitus Surgical History Surgical History History of arthroplasty of left knee History of cardiac catheterization (~2011) Normal coronary anatomy. History of cervical spinal surgery x2. History of vein stripping Family History Family History Mother Family history of Parkinson's disease Family history of coronary artery disease Father Family history of congestive heart failure Hypertension Sibling Family history of lung cancer Other Acute myocardial infarction Diabetes mellitus Heart disease Lung cancer Parkinson's disease Social History Social History Social History: The patient lives in [place] with his . Retired from the [employer] department. He smoked briefly as a teenager. No alcohol or illicit substance abuse. His Adi is his surrogate decision maker and he wishes to be a full code. Smoking status: Former smoker Alcohol intake: never Substance use: never Lack of Transportation: No Lack of Food: Never True Current Housing: I Have Housing Concerned About Future Housing: No Difficulty Paying Gas/Electric Bills: No Difficulty Paying for Meds: No Currently Unemployed: No Education: Associate Degree Difficulty w/ Childcare or Family Care: No Gender identity (if verbalized by the patient): Male Sexual Orientation (if Verbalized by the Patient): Straight or Heterosexual Spiritual care concerns: No Exam Narrative: GENERAL: Well-appearing, well-nourished, and in no acute distress. HEAD: Normocephalic, atraumatic. EYES: PERRLA and EOMI. ENT
[2022-12-08 20:43] LABS: Alanine Aminotransferase 19 U/L (6-50); Albumin Level 4.4 g/dL (3.5-5.1); Alkaline Phosphatase 82 U/L (38-126); Anion Gap 13 mmol/L (8-16); Aspartate Amino Transferase 21 U/L (17-59); Blood Urea Nitrogen 19 mg/dL (9-20); Carbon Dioxide 19 mmol/L (22-30); Chloride 97 mmol/L (98-107); Estimated CRCL calculation 93 ml/min; Estimated Glomerular Filt Rate > 60; Glucose 370 mg/dL (65-110); Potassium 4.6 mmol/L (3.4-5.0); Sodium 129 mmol/L (137-145)
[2022-12-08 20:44] LABS: Lactic Acid Reflex 1.5 mmol/L (0.7-2.0)
[2022-12-08 20:53] LABS: Influenza A QL RT-PCR Negative (Negative); Influenza B QL RT-PCR Negative (Negative); SARS-CoV-2 RNA PCR Negative (Negative)
[2022-12-08 20:55] LABS: Troponin I < 0.012 ng/mL (0.000-0.034)
[2022-12-08 21:49] VITALS: PULSE 112; RESP 18; TEMP 38.2; O2SAT 97
--- NOTE | 2022-12-08 22:17 | PM.IMHP ---
H&P: HPI History of Present Illness Date/Time: 12/08/22 22:17 Chief Complaint: Increased weakness Narrative: 67-year-old male with a past medical history of uncontrolled diabetes mellitus with multiple complication, multiple CVA with expressive aphasia, morbid obesity with poor compliance with CPAP, essential hypertension and chronic urinary incontinence who presented to the ER from home with increased weakness and fever. The patient was evidently having chills that started overnight. His is noticed that he has not been able to get up on on his own. He actually slid down and landed on to the floor on his bottom. They tried multiple times to get him up in where ventral able to do so with the help of their son. provides most history due to patient's expressive aphasia. She reports that he has frequent difficulty with word finding but this gets worse whenever he gets sick. He also has some mild sometimes intermittent confusion at baseline but is worse when he becomes ill. He has not been having any nausea or vomiting. She has not noticed a significant amount of coughing. She does state that when he was eating earlier in the day he did cough a few times during the meal she thought that he just may have swallowed food wrong way. She states that he does not do this often. He denies difficulty swallowing. He does have some pain in his left lateral knee with some associated swelling. He has some mild erythema to the lower extremity. His reports that he had erythema in lower extremity did not start until after a his multiple attempts to get up off the floor. She thinks that the erythema and swelling is from there vigorous attempts to get him up. The patient has chronic urinary and intermittent bowel incontinence. His denies patient having any foul-smelling urine. On arrival to the ER the patient was febrile with temperature 101.2?. He received a 30 mL/kilos bolus based on his ideal body weight. He was had a CTA of the chest abdomen pelvis which demonstrated a right upper lobe pneumonia. Blood cultures were obtained. Patient was started empiric antibiotic therapy with Rocephin and azithromycin. Patient's reports a does have a chronic wound to his left 2nd toe. His inspector screen printing has ordered an outpatient MRI on the 2nd or 3rd of the month to assess if he may have some osteomyelitis. He has no erythema of the toe or foot. He denies any increased pain of the foot. His glucoses in the ER were noted to be 370 and came down to 259 after fluids. The admits that they rarely checks his blood sugars at home. He is post have a A1c obtained as outpatient next week. His last A1c on 08/17/2022 was 8.7 %. Patient did appear confused at the time my evaluation and states that he is here. He could not name whether he was at home at a restaurant or in the hospital. He could not tell me the month or year. He was oriented to person. Review of Systems Review of Systems: 12 systems were reviewed with pertinent positives and negatives per HPI. Except as documented in the HPI, all other systems were reviewed and are negative. However review of systems was limited due to patient's expressive aphasia and confusion. [facility] Past Medical History Medical History (Updated 12/09/22 @ 00:02 by Georgiana Crawford DO) B12 deficiency Cerebrovascular accident CVA in June 2015 and July 2015 presenting with expressive aphasia (improved) and mild residual left-sided weakness. 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 DAVID was negative for cardioembolic source. He has been on Eliquis since that time. 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 EF 50 55%. Left ventricular chamber mildly enlarged. Diastolic dysfunction grade 1 Erectile dysfunction associated with vasculopathy History of pancr
[2022-12-08 22:31] LABS: Procalcitonin 1.2 ng/mL
[2022-12-08] MEDS: SODIUM CHLORIDE 0.9% IV 1,000 ML 125 ML IV CONT (22:56)
[2022-12-08] MEDS: AZITHROMYCIN 500 MG/NS 250 ML 500 MG/250 ML BAG 250 MG IVPB (22:59)
[2022-12-08 23:14] LABS: Glucose Point of Care 259 mg/dl (65-105)
[2022-12-08 23:19] LABS: Troponin I 0.012 ng/mL (0.000-0.034)
[2022-12-09] VITALS (14 sets, daily range): BP systolic 125–157; BP diastolic 58–80; PULSE 90–108; RESP 16–20; TEMP 36.6–37.1; O2SAT 96–98; BMI 47.8
--- NOTE | 2022-12-09 00:05 | ADMGEN ---
This patient, Harley Hernandez, was admitted to Medical Room 247-. Patient/family oriented to hospital policies and general routines including ID bracelet, bed and alarms, visiting hours, pain management, procedures, bathroom and other care routines, personal items, smoking policy, room service/diet, and visiting hours. Information on how to activate the Rapid Response Team has been discussed. Patient/Family are encouraged to report perceived risks to care and to ask questions if they do not understand what they are told or what they should do.
[2022-12-09 05:34] LABS: Basophils Percent Auto 0.3 % (0.2-1.2); Eosinophils Percent Auto 0.1 % (0-4.4); Hematocrit 42.4 % (42.0-52.0); Immature Granulocyte Percent A 0.7 % (0-0.5); Lymphocytes Absolute Auto 1.06 K/mm3 (0.9-3.2); Lymphocytes Percent Auto 7.7 % (18.3-44.2); Mean Corpuscular Hemoglobin 31.7 pg (26-34); Mean Corpuscular Volume 95.9 fl (80-100); Monocytes Absolute Auto 1.1 K/mm3 (0.1-0.6); Monocytes Percent Auto 8.2 % (2.6-8.5); Neutrophils Absolute Auto 11.4 K/mm3 (1.3-6.7); Platelet Count Result 155 k/mm3 (150-375); Red Blood Count 4.42 M/mm3 (4.6-6.20); Red Cell Distribution Width 13.2 % (11.5-14.5); White Blood Count 13.7 K/mm3 (4.5-10.0)
[2022-12-09 05:50] LABS: Hemoglobin A1C 8.4 % (<5.7)
[2022-12-09 05:52] LABS: Anion Gap 11 mmol/L (8-16); Blood Urea Nitrogen 14 mg/dL (9-20); Carbon Dioxide 17 mmol/L (22-30); Chloride 105 mmol/L (98-107); Estimated CRCL calculation 95 ml/min; Estimated Glomerular Filt Rate > 60; Glucose 182 mg/dL (65-110); Potassium 4.1 mmol/L (3.4-5.0); Sodium 133 mmol/L (137-145)
[2022-12-09] MEDS: SODIUM CHLORIDE 0.9% IV 1,000 ML 125 ML IV CONT ×2 (06:51→18:04)
[2022-12-09] MEDS: amLODIPine BESYLATE 5 MG TABLET PO ×2 (08:23→18:05)
[2022-12-09] MEDS: APIXABAN 5 MG TABLET PO ×2 (08:23→20:11)
[2022-12-09] MEDS: glyBURIDE 5 MG TABLET PO (08:24)
[2022-12-09] MEDS: POTASSIUM CHLORIDE 20 MEQ ER TABLET PO (08:24)
[2022-12-09] MEDS: MIRABEGRON 50 MG ER TABLET PO (08:24)
[2022-12-09] MEDS: metFORMIN HCL 500 MG TABLET 1000 MG PO ×2 (08:24→18:05)
[2022-12-09] MEDS: CELECOXIB 200 MG CAPSULE PO (08:24)
[2022-12-09] MEDS: EMPAGLIFLOZIN 25 MG TABLET PO (08:25)
[2022-12-09 08:36] LABS: Glucose Point of Care 187 mg/dl (65-105)
--- NOTE | 2022-12-09 11:02 | PCSTNOTE ---
Please refer to the Bedside Swallow Evaluation in the EMR. Please note, silent aspiration cannot be ruled out at bedside.
[2022-12-09 12:02] LABS: Glucose Point of Care 226 mg/dl (65-105)
[2022-12-09] MEDS: INSULIN ASPART (*BKC) 100 UNITS/ML SUB-Q ×2 (12:08→20:20)
--- NOTE | 2022-12-09 13:24 | PM.IMPN ---
Progress Note: A&P Assessment and Plan (1) Sepsis: Qualifiers: Sepsis acute organ dysfunction status: with acute organ dysfunction Sepsis type: sepsis due to unspecified organism Severe sepsis acute organ dysfunction type: encephalopathy Severe sepsis shock status: without septic shock Qualified Code(s): A41.9 - Sepsis, unspecified organism; R65.20 - Severe sepsis without septic shock; G93.40 - Encephalopathy, unspecified Code(s): A41.9 - Sepsis, unspecified organism Status: Acute Assessment and Plan: The patient meets sepsis criteria with fever, tachycardia and leukocytosis. Blood cultures drawn Patient been placed on empiric antibiotic therapy with Rocephin and azithromycin for right upper lobe pneumonia. Will continue maintenance fluids at 100 mL an hour. Will continue Tylenol and ibuprofen as needed for symptoms fever. (2) Pneumonia: Qualifiers: Laterality: right Lung location: upper lobe of lung Pneumonia type: due to unspecified organism Qualified Code(s): J18.9 - Pneumonia, unspecified organism Code(s): J18.9 - Pneumonia, unspecified organism Status: Acute Assessment and Plan: Chest abdomen pelvis CT revealing right upper lobe pneumonia. Continue antibiotic therapy. Patient requiring oxygen at this time. Matilde Ly. (3) Type 2 diabetes mellitus with hyperglycemia, without long-term current use of insulin: Code(s): E11.65 - Type 2 diabetes mellitus with hyperglycemia Status: Acute Assessment and Plan: The patient has historically poorly controlled diabetes with increased hyperglycemia likely due to his acute sepsis. Will place patient on sliding scale insulin with Accu-Cheks a.c. HS and hypoglycemia protocol. Will continue home diabetic medications as well. (4) Sleep apnea, unspecified: Qualifiers: Sleep apnea type: obstructive Qualified Code(s): G47.33 - Obstructive sleep apnea (adult) (pediatric) Code(s): G47.30 - Sleep apnea, unspecified Status: Acute Assessment and Plan: CPAP provided if patient unable to bring from home. (5) Neurogenic bladder as late effect of cerebrovascular accident (CVA): Code(s): I69.398 - Other sequelae of cerebral infarction; N31.9 - Neuromuscular dysfunction of bladder, unspecified Status: Acute Assessment and Plan: Patient has chronic neurogenic bladder. Will place pure wick catheter S the patient is already required a complete bed change x2. Will continue patient's home Motegrity and oxybutynin. Subjective Date/time seen: 12/09/22 13:24 Interval history: Patient doing well today. He does have some knee pain that is likely contributed to his recent fall. His leg is mildly red and warm to the touch although no swelling or tenderness is present. He denies any chest pain shortness a breath. He is not requiring oxygen at this time. He does have intermittent cough but otherwise doing well at this time. Exam Narrative: GENERAL: Comfortable, no acute distress HENMT: moist mucous membranes EYES: EOM intact b/l NECK: no lymphadenopathy RESPIRATORY: clear to auscultation CARDIO: RRR GI: soft, nontender, bowel sounds present SKIN: no rashes EXTREMITIES: no edema, redness or tenderness Objective Data Vital Signs Vital Signs: Vital Signs - 24 hr 12/08/22 19:41 12/08/22 21:49 12/09/22 00:38 Temperature 101.2 F H 100.8 F H 98.0 F Pulse Rate 121 H 112 H 103 H Respiratory Rate 20 18 20 Blood Pressure 165/77 H 143/77 H Pulse Oximetry 97 97 98 Oxygen Delivery Room Air 12/09/22 00:15 12/09/22 00:40 12/09/22 04:00 Temperature Pulse Rate 108 H 98 Respiratory Rate Blood Pressure Pulse Oximetry Oxygen Delivery Room Air 12/09/22 06:00 12/09/22 08:30 12/09/22 10:30 Temperature 98.0 F Pulse Rate 106 H 104 H Respiratory Rate 20 Blood Pressure 151/73 H 157
[2022-12-09] MEDS: IPRATROPIUM BR 0.02% INH SOLN 0.5 MG/2.5 ML VIAL INHALATION (14:30)
[2022-12-09] MEDS: ALBUTEROL SULFATE NEB 2.5 MG/3 ML INH INHALATION (14:31)
--- NOTE | 2022-12-09 14:32 | PHAR ---
pt's home med victoza 18 mg/3 ml injection pen verified by pharmacy
[2022-12-09] MEDS: lisinopriL 20 MG TABLET 40 MG PO (18:05)
[2022-12-09] MEDS: oxyBUTYnin CHLORIDE XL 5 MG TAB.ER.24 10 MG PO (18:05)
[2022-12-09 18:13] LABS: Glucose Point of Care 200 mg/dl (65-105)
[2022-12-09] MEDS: TAMSULOSIN HCL 0.4 MG CAPSULE PO (20:11)
[2022-12-09] MEDS: AZITHROMYCIN 500 MG/NS 250 ML 500 MG/250 ML BAG 250 MG IVPB (20:15)
[2022-12-09 20:25] LABS: Glucose Point of Care 209 mg/dl (65-105)
[2022-12-10] VITALS (18 sets, daily range): BP systolic 117–134; BP diastolic 66–73; PULSE 93–122; RESP 16–18; TEMP 36.5–37.2; O2SAT 94–97
[2022-12-10] MEDS: SODIUM CHLORIDE 0.9% IV 1,000 ML 125 ML IV CONT (02:12)
[2022-12-10 06:20] LABS: Basophils Percent Auto 0.2 % (0.2-1.2); Eosinophils Absolute Auto 0.1 K/mm3 (0-0.3); Eosinophils Percent Auto 0.5 % (0-4.4); Hematocrit 39.1 % (42.0-52.0); Hemoglobin 12.9 g/dL (14.0-18.0); Immature Granulocyte Absolute 0.07 K/mm3 (0.00-0.031); Immature Granulocyte Percent A 0.6 % (0-0.5); Lymphocytes Absolute Auto 1.03 K/mm3 (0.9-3.2); Lymphocytes Percent Auto 9.2 % (18.3-44.2); Mean Corpuscular Hemoglobin 31.9 pg (26-34); Mean Corpuscular Volume 96.8 fl (80-100); Mean Platelet Volume 9.7 fl (7.4-10.4); Monocytes Absolute Auto 0.9 K/mm3 (0.1-0.6); Monocytes Percent Auto 8.1 % (2.6-8.5); Neutrophils Absolute Auto 9.1 K/mm3 (1.3-6.7); Neutrophils Percent Auto 81.4 % (45.5-73.1); Platelet Count Result 157 k/mm3 (150-375); Red Blood Count 4.04 M/mm3 (4.6-6.20); Red Cell Distribution Width 13.2 % (11.5-14.5); White Blood Count 11.2 K/mm3 (4.5-10.0)
[2022-12-10 06:30] LABS: Potassium 4.2 mmol/L (3.4-5.0)
[2022-12-10 06:32] LABS: Alanine Aminotransferase 13 U/L (6-50); Albumin Level 3.3 g/dL (3.5-5.1); Alkaline Phosphatase 63 U/L (38-126); Anion Gap 10 mmol/L (8-16); Aspartate Amino Transferase 19 U/L (17-59); Bilirubin,Total 0.7 mg/dL (0.2-1.3); Blood Urea Nitrogen 15 mg/dL (9-20); Carbon Dioxide 17 mmol/L (22-30); Chloride 107 mmol/L (98-107); Estimated CRCL calculation 95 ml/min; Estimated Glomerular Filt Rate > 60; Glucose 154 mg/dL (65-110); Sodium 134 mmol/L (137-145)
[2022-12-10] MEDS: ALBUTEROL SULFATE NEB 2.5 MG/3 ML INH INHALATION ×3 (07:38→21:22)
[2022-12-10] MEDS: IPRATROPIUM BR 0.02% INH SOLN 0.5 MG/2.5 ML VIAL INHALATION ×3 (07:38→21:22)
[2022-12-10] MEDS: APIXABAN 5 MG TABLET PO ×2 (08:14→20:40)
[2022-12-10] MEDS: amLODIPine BESYLATE 5 MG TABLET PO ×2 (08:14→17:24)
[2022-12-10] MEDS: glyBURIDE 5 MG TABLET PO (08:14)
[2022-12-10] MEDS: MIRABEGRON 50 MG ER TABLET PO (08:14)
[2022-12-10] MEDS: POTASSIUM CHLORIDE 20 MEQ ER TABLET PO (08:15)
[2022-12-10] MEDS: EMPAGLIFLOZIN 25 MG TABLET PO (08:15)
[2022-12-10] MEDS: metFORMIN HCL 500 MG TABLET 1000 MG PO ×2 (08:15→17:24)
[2022-12-10] MEDS: CELECOXIB 200 MG CAPSULE PO (08:15)
[2022-12-10 08:26] LABS: Glucose Point of Care 173 mg/dl (65-105)
[2022-12-10 12:03] LABS: Glucose Point of Care 192 mg/dl (65-105)
--- NOTE | 2022-12-10 13:37 | PM.IMPN ---
Progress Note: A&P Assessment and Plan (1) Sepsis: Qualifiers: Sepsis acute organ dysfunction status: with acute organ dysfunction Sepsis type: sepsis due to unspecified organism Severe sepsis acute organ dysfunction type: encephalopathy Severe sepsis shock status: without septic shock Qualified Code(s): A41.9 - Sepsis, unspecified organism; R65.20 - Severe sepsis without septic shock; G93.40 - Encephalopathy, unspecified Code(s): A41.9 - Sepsis, unspecified organism Status: Acute Assessment and Plan: The patient meets sepsis criteria with fever, tachycardia and leukocytosis. Blood cultures No growth to date Patient been placed on empiric antibiotic therapy with Rocephin and azithromycin for right upper lobe pneumonia. Fluids discontinued Will continue Tylenol and ibuprofen as needed for symptoms fever. (2) Pneumonia: Qualifiers: Laterality: right Lung location: upper lobe of lung Pneumonia type: due to unspecified organism Qualified Code(s): J18.9 - Pneumonia, unspecified organism Code(s): J18.9 - Pneumonia, unspecified organism Status: Acute Assessment and Plan: Chest abdomen pelvis CT revealing right upper lobe pneumonia. Continue antibiotic therapy. Patient requiring oxygen at this time. Matilde Ly. (3) Type 2 diabetes mellitus with hyperglycemia, without long-term current use of insulin: Code(s): E11.65 - Type 2 diabetes mellitus with hyperglycemia Status: Acute Assessment and Plan: The patient has historically poorly controlled diabetes with increased hyperglycemia likely due to his acute sepsis. Will place patient on sliding scale insulin with Accu-Cheks a.c. HS and hypoglycemia protocol. Will continue home diabetic medications as well. (4) Sleep apnea, unspecified: Qualifiers: Sleep apnea type: obstructive Qualified Code(s): G47.33 - Obstructive sleep apnea (adult) (pediatric) Code(s): G47.30 - Sleep apnea, unspecified Status: Acute Assessment and Plan: CPAP provided if patient unable to bring from home. (5) Neurogenic bladder as late effect of cerebrovascular accident (CVA): Code(s): I69.398 - Other sequelae of cerebral infarction; N31.9 - Neuromuscular dysfunction of bladder, unspecified Status: Acute Assessment and Plan: Patient has chronic neurogenic bladder. Will place pure wick catheter S the patient is already required a complete bed change x2. Will continue patient's home Motegrity and oxybutynin. (6) Fall: Code(s): W19.XXXA - Unspecified fall, initial encounter Status: Acute Assessment and Plan: patient had a fall and in the process of trying to get up he tweaked his knee. Knee x-ray revealing moderate size knee joint effusion with soft tissue swelling surrounding the knee. Orthopedics consulted for possible joint aspiration or cortisone injection. Ice and elevation p.r.n. (7) Septic joint of left knee joint: Code(s): M00.9 - Pyogenic arthritis, unspecified Status: Acute Assessment and Plan: Knee x-ray revealing moderate-sized joint effusion with soft tissue swelling surrounding the knee. Orthopedics consulted and did joint aspiration that was suspicious for acute infection. Orthopedist recommending transfer to patient's orthopedic surgeon Dr. Ardon at [facility]. Joint aspiration sent for culture and analysis Subjective Date/time seen: 12/10/22 13:37 Interval history: Patient doing well today. Patient will be evaluated by orthopedics for possible joint aspiration versus cortisone injection verses conservative management. discharge was good discussed with both patient and his and I recommended he be placed into rehab but they are not sure. Patient is not doing well with ambulation. Once discharge arrangements are made he will likely be able to go.
--- NOTE | 2022-12-10 15:16 | PM.CNOR ---
Assessment and Plan Assessment and plan (1) Septic joint of left knee joint: Qualifiers: Septic arthritis organism: due to unspecified organism Qualified Code(s): M00.9 - Pyogenic arthritis, unspecified Code(s): M00.9 - Pyogenic arthritis, unspecified Status: Acute (2) Type 2 diabetes mellitus with hyperglycemia, without long-term current use of insulin: Code(s): E11.65 - Type 2 diabetes mellitus with hyperglycemia Status: Acute (3) Spondylosis without myelopathy or radiculopathy, lumbar region: Code(s): M47.816 - Spondylosis without myelopathy or radiculopathy, lumbar region Status: Acute (4) Morbid obesity: Code(s): E66.01 - Morbid (severe) obesity due to excess calories Status: Acute (5) Expressive aphasia: Code(s): R47.01 - Aphasia Status: Acute (6) Pneumonia: Qualifiers: Laterality: right Lung location: upper lobe of lung Pneumonia type: due to unspecified organism Qualified Code(s): J18.9 - Pneumonia, unspecified organism Code(s): J18.9 - Pneumonia, unspecified organism Status: Acute (7) Sepsis: Qualifiers: Sepsis acute organ dysfunction status: with acute organ dysfunction Sepsis type: sepsis due to unspecified organism Severe sepsis acute organ dysfunction type: encephalopathy Severe sepsis shock status: without septic shock Qualified Code(s): A41.9 - Sepsis, unspecified organism; R65.20 - Severe sepsis without septic shock; G93.40 - Encephalopathy, unspecified Code(s): A41.9 - Sepsis, unspecified organism Status: Acute Plan Acute septic arthritis left knee. He appears to have been doing reasonably well earlier this week. Difficult situation complicated by uncontrolled diabetes mellitus. He is on Eliquis for multiple strokes. Will switch him to heparin. I obtained 80 mL of purulent fluid from the knee. We will send this for cultures and cell count. Radiographs reviewed show an intact total knee arthroplasty. Cemented components. Effusion noted. No osteolysis or loosening. Subtle medial tibia lucent line. Arrangements are in process for contacting his orthopedic surgeon. He will most likely need surgical debridement. He will need to be transferred to a facility equipped to handle this condition. He additionally has a pneumonia and several other medical comorbidities. I explained the significant factors to the patient's . Continue the current antibiotics. History of Present Illness HPI Consult date: 12/10/22 Chief complaint: Sepsis/Pneumonia Narrative: 67-year-old male with history of uncontrolled diabetes mellitus and multiple CVAs presents with acute left knee pain as well as weakness and fever. His noticed that he began having difficulty getting up on his own and weakness 2 days ago. He has a history of left total knee arthroplasty [address] Aris Ardon. This was done at [facility]. He states that the knee is mildly painful. He has been walking with a walker. When he presented his temperature was 101.2?. He is afebrile now on antibiotics and says that the knee feels better. Hemoglobin A1c in August was 8.7. He is confused to time and place. He has an expressive aphasia and history is difficult to obtain. He is demonstrating some confusion which occurs when he is ill. Review of Systems Review of Systems: All systems reviewed & are unremarkable except as noted in HPI and below PMFSH Past Medical History Medical History B12 deficiency Cerebrovascular accident CVA in June 2015 and July 2015 presenting with expressive aphasia (improved) and mild residual left-sided weakness. 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 DAVID was negative for cardioembolic source. He has been on Eliquis since that time. 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
--- NOTE | 2022-12-10 15:25 | PC.NURSE ---
Patient was getting frustrated about wanting to get home. Patient was educated on need to remain in the hospital. Patient had pulled his IV out. Patient was attempting to get out of the chair unassisted. Patient was educated on safety and was asked to sit down. Patient then got further frustrated and stated Well I will just shoot myself patient was told that this will have to be reported to the provider and he then stated Well if I had a gun I would. [place] scale questions were attempted to be asked and patient refused to answer any more questions. Provider, mainspring fabrication supervisor, and charge nurse were notified. Sitter was placed at bedside. Provider Rhonda Dimas was notified, and she came to assess the patient. Provider felt the patient did not have intent or means to hurt or kill himself. Patient does not need to be transferred to ICU for care and patient does not need a sitter due to precautions being canceled.
[2022-12-10 16:09] LABS: Source Synovial Fluid Synovial fluid
[2022-12-10 16:10] LABS: Appearance Synovial Fluid Turbid (Clear); Color Synovial Fluid Yellow (Colorless); Crystals Synovial Fluid None Seen (None Seen); Lymphocytes Synovial Fluid 5 %; Monocytes Synovial Fluid 12 %; Neutrophils Synovial Fluid 83 % (0-25)
[2022-12-10 16:12] LABS: Nucleated Cell Synovial Fluid 87800 /uL (0-200); RBC Synovial Fluid 20000 /uL (0-0)
[2022-12-10 17:15] LABS: Glucose Point of Care 199 mg/dl (65-105)
[2022-12-10] MEDS: lisinopriL 20 MG TABLET 40 MG PO (17:25)
[2022-12-10] MEDS: oxyBUTYnin CHLORIDE XL 5 MG TAB.ER.24 10 MG PO (17:25)
[2022-12-10] MEDS: TAMSULOSIN HCL 0.4 MG CAPSULE PO (20:40)
[2022-12-10 21:00] LABS: Glucose Point of Care 202 mg/dl (65-105)
[2022-12-10] MEDS: AZITHROMYCIN 500 MG/NS 250 ML 500 MG/250 ML BAG 250 MG IVPB (21:12)
[2022-12-10] MEDS: INSULIN ASPART (*BKC) 100 UNITS/ML SUB-Q (21:46)
[2022-12-10 23:09] LABS: Glucose Point of Care 204 mg/dl (65-105)
[2022-12-11] VITALS (16 sets, daily range): BP systolic 147–168; BP diastolic 71–87; PULSE 95–118; RESP 16–20; TEMP 36.6–37.2; O2SAT 96–99
[2022-12-11 05:53] LABS: Hematocrit 39.9 % (42.0-52.0); Hemoglobin 13.1 g/dL (14.0-18.0); Mean Corpuscular HGB Conc 32.8 g/dl (32-36); Mean Corpuscular Hemoglobin 31.7 pg (26-34); Mean Corpuscular Volume 96.6 fl (80-100); Mean Platelet Volume 9.5 fl (7.4-10.4); Platelet Count Result 164 k/mm3 (150-375); Red Blood Count 4.13 M/mm3 (4.6-6.20); Red Cell Distribution Width 13.1 % (11.5-14.5); White Blood Count 9.5 K/mm3 (4.5-10.0)
[2022-12-11 05:58] LABS: Alanine Aminotransferase 15 U/L (6-50); Albumin Level 3.4 g/dL (3.5-5.1); Alkaline Phosphatase 65 U/L (38-126); Anion Gap 9 mmol/L (8-16); Aspartate Amino Transferase 18 U/L (17-59); Bilirubin,Total 0.7 mg/dL (0.2-1.3); Blood Urea Nitrogen 17 mg/dL (9-20); Calcium 8.2 mg/dL (8.4-10.2); Carbon Dioxide 17 mmol/L (22-30); Chloride 106 mmol/L (98-107); Estimated CRCL calculation 95 ml/min; Estimated Glomerular Filt Rate > 60; Glucose 171 mg/dL (65-110); Potassium 4.5 mmol/L (3.4-5.0); Sodium 132 mmol/L (137-145)
[2022-12-11] MEDS: metFORMIN HCL 500 MG TABLET 1000 MG PO ×2 (08:02→17:00)
[2022-12-11] MEDS: amLODIPine BESYLATE 5 MG TABLET PO ×2 (08:03→17:00)
[2022-12-11] MEDS: POTASSIUM CHLORIDE 20 MEQ ER TABLET PO (08:03)
[2022-12-11] MEDS: MIRABEGRON 50 MG ER TABLET PO (08:03)
[2022-12-11] MEDS: glyBURIDE 5 MG TABLET PO (08:03)
[2022-12-11] MEDS: CELECOXIB 200 MG CAPSULE PO (08:03)
[2022-12-11] MEDS: APIXABAN 5 MG TABLET PO (08:03)
[2022-12-11] MEDS: EMPAGLIFLOZIN 25 MG TABLET PO (08:04)
[2022-12-11 08:25] LABS: Glucose Point of Care 176 mg/dl (65-105)
[2022-12-11] MEDS: HEPARIN SODIUM 5,000 UNITS/ML VIAL 5000 UNITS SUB-Q (08:46)
[2022-12-11] MEDS: ALBUTEROL SULFATE NEB 2.5 MG/3 ML INH INHALATION ×3 (09:46→20:20)
[2022-12-11] MEDS: IPRATROPIUM BR 0.02% INH SOLN 0.5 MG/2.5 ML VIAL INHALATION ×3 (09:46→20:21)
[2022-12-11 12:03] LABS: Glucose Point of Care 186 mg/dl (65-105)
--- NOTE | 2022-12-11 12:06 | PM.PNORT ---
Progress Note: A&P Assessment and Plan (1) Septic joint of left knee joint: Code(s): M00.9 - Pyogenic arthritis, unspecified Status: Acute Plan Patient felt some relief after the aspiration yesterday, but moderate pain has returned. Cell count 87,800. PMNs 83%. No crystals. Cultures pending. Resting comfortably. No distress. Afebrile. Vitals stable. Knee shows moderate swelling and warmth. No significant change. Knee exam stable. Cell count confirms prosthetic joint infection. Cultures pending. Transfer pending. Subjective Subjective Date/Time Seen: 12/11/22 12:06 Objective Data Vital Signs Vital Signs: Vital Signs - 24 hr 12/10/22 13:45 12/10/22 13:54 12/10/22 14:05 Temperature 36.6 C Pulse Rate 106 H 108 H 112 H Respiratory Rate 16 16 18 Blood Pressure 134/66 Pulse Oximetry 97 Oxygen Delivery 12/10/22 16:00 12/10/22 21:23 12/10/22 21:26 Temperature Pulse Rate 122 H 103 H 103 H Respiratory Rate 18 Blood Pressure Pulse Oximetry 94 Oxygen Delivery Room Air 12/10/22 21:33 12/10/22 22:00 12/10/22 20:30 Temperature 37.2 C Pulse Rate 99 105 H Respiratory Rate 18 18 Blood Pressure 117/73 Pulse Oximetry 97 Oxygen Delivery Room Air 12/10/22 20:00 12/11/22 00:00 12/11/22 04:00 Temperature Pulse Rate 113 H 118 H 98 Respiratory Rate Blood Pressure Pulse Oximetry Oxygen Delivery 12/11/22 05:50 12/11/22 08:30 12/11/22 08:30 Temperature 36.8 C Pulse Rate 98 101 H 98 Respiratory Rate 18 18 Blood Pressure 147/87 H Pulse Oximetry 98 98 Oxygen Delivery Room Air 12/11/22 09:47 12/11/22 09:47 12/11/22 09:58 Temperature Pulse Rate 95 102 H Respiratory Rate 20 20 Blood Pressure Pulse Oximetry 96 Oxygen Delivery Room Air Intake/Output Intake/Output: Intake & Output 12/08/22 12/09/22 12/10/22 12/11/22 23:59 23:59 23:59 23:59 Intake Total 3050 4950 4020 790 Output Total 1250 600 Balance 3050 3700 3420 790 Meds/Results Medications: Active Medications Generic Name Dose Route Start Last Admin Trade Name Reynaldo PRN Reason Stop Dose Admin Acetaminophen 650 mg 12/08/22 22:09 Acetaminophen 325 Mg Tablet PO Q4H PRN Mild Pain (1-3) or Fever Albuterol 2.5 mg 12/09/22 14:00 12/11/22 09:46 Albuterol Sulfate Neb 2.5 Mg/3 Ml Inh INHALATION 2.5 mg Q6HRT JOSÉ ANTONIO Administration Amlodipine Besylate 5 mg 12/09/22 09:00 12/11/22 08:03 Amlodipine Besylate 5 Mg Tablet PO 5 mg BID JOSÉ ANTONIO Administration Apixaban 5 mg 12/09/22 09:00 12/11/22 08:03 Apixaban 5 Mg Tablet PO 5 mg Q12HR JOSÉ ANTONIO Administration Celecoxib 200 mg 12/09/22 09:00 12/11/22 08:03 Celecoxib 200 Mg Capsule PO 200 mg DAILY JOSÉ ANTONIO Administration Cholestyramine Resin 4 gm 12/09/22 01:17 Cholestyramine (W/ Sugar) 4 Gm Powd.Pack PO BID PRN Diarrhea Dextrose 12.5 gm 12/08/22 22:11 Dextrose 50% 25 Gm/50 Ml Syringe IV PUSH PRN PRN Hypoglycemia Protocol Empagliflozin 25 mg 12/09/22 09:00 12/11/22 08:04 Empagliflozin 25 Mg Tablet PO 25 mg DAILY JOSÉ ANTONIO Administration Glucagon 1 mg 12/08/22 22:11 Glucagon For Inj 1 Mg Vial IM PRN PRN Hypoglycemia Protocol Glucose 15 gm 12/08/22 22:11 Glucose Oral Gel 15 Gm Of Glucse In 37.5 Gm Tube PO PRN PRN Hypoglycemia Protocol Glyburide 5 mg 12/09/22 09:00 12/11/22 08:03 Glyburide 5 Mg Tablet PO 5 mg DAILY JOSÉ ANTONIO Administration Heparin Sodium (Porcine) 5,000 units 12/11/22 09:00 12/11/22 08:46 Heparin Sodium 5,000 Units/Ml Vial SUB-Q 5,000 units Q12HR JOSÉ ANTONIO Administration Ceftriaxone Sodium 1 gm in 50 mls @ 100 mls/hr 12/09/22 20:00 12/10/22 21:07 Rocephin 1 Gm/Ns 50 Ml IVPB Infused Q24H JOSÉ ANTONIO Infusion Azithromycin 500 mg in 250 mls @ 250 mls/hr 12/09/22 21:00 12/10/22 22:12 Zithromax IVPB Infused Q24H JOSÉ ANTONIO Infusion Dextrose 1,000
--- NOTE | 2022-12-11 12:36 | PM.IMPN ---
Progress Note: A&P Assessment and Plan (1) Sepsis: Qualifiers: Sepsis acute organ dysfunction status: with acute organ dysfunction Sepsis type: sepsis due to unspecified organism Severe sepsis acute organ dysfunction type: encephalopathy Severe sepsis shock status: without septic shock Qualified Code(s): A41.9 - Sepsis, unspecified organism; R65.20 - Severe sepsis without septic shock; G93.40 - Encephalopathy, unspecified Code(s): A41.9 - Sepsis, unspecified organism Status: Acute Assessment and Plan: The patient meets sepsis criteria with fever, tachycardia and leukocytosis. Blood cultures no growth to date Patient been placed on empiric antibiotic therapy with Rocephin and azithromycin for right upper lobe pneumonia. Fluids discontinued Will continue Tylenol and ibuprofen as needed for symptoms fever. (2) Pneumonia: Qualifiers: Laterality: right Lung location: upper lobe of lung Pneumonia type: due to unspecified organism Qualified Code(s): J18.9 - Pneumonia, unspecified organism Code(s): J18.9 - Pneumonia, unspecified organism Status: Acute Assessment and Plan: Chest abdomen pelvis CT revealing right upper lobe pneumonia. Continue antibiotic therapy. Patient requiring oxygen at this time. Matilde Ly. (3) Type 2 diabetes mellitus with hyperglycemia, without long-term current use of insulin: Code(s): E11.65 - Type 2 diabetes mellitus with hyperglycemia Status: Acute Assessment and Plan: The patient has historically poorly controlled diabetes with increased hyperglycemia likely due to his acute sepsis. Will place patient on sliding scale insulin with Accu-Cheks a.c. HS and hypoglycemia protocol. Will continue home diabetic medications as well. (4) Sleep apnea, unspecified: Qualifiers: Sleep apnea type: obstructive Qualified Code(s): G47.33 - Obstructive sleep apnea (adult) (pediatric) Code(s): G47.30 - Sleep apnea, unspecified Status: Acute Assessment and Plan: CPAP provided if patient unable to bring from home. (5) Neurogenic bladder as late effect of cerebrovascular accident (CVA): Code(s): I69.398 - Other sequelae of cerebral infarction; N31.9 - Neuromuscular dysfunction of bladder, unspecified Status: Acute Assessment and Plan: Patient has chronic neurogenic bladder. Will place pure wick catheter S the patient is already required a complete bed change x2. Will continue patient's home Motegrity and oxybutynin. (6) Fall: Code(s): W19.XXXA - Unspecified fall, initial encounter Status: Acute Assessment and Plan: patient had a fall and in the process of trying to get up he tweaked his knee. Knee x-ray revealing moderate size knee joint effusion with soft tissue swelling surrounding the knee. Orthopedics consulted for possible joint aspiration or cortisone injection. Ice and elevation p.r.n. (7) Septic joint of left knee joint: Code(s): M00.9 - Pyogenic arthritis, unspecified Status: Acute Assessment and Plan: ?Knee x-ray revealing moderate-sized joint effusion with soft tissue swelling surrounding the knee.? Orthopedics consulted and did joint aspiration that was suspicious for acute infection. Orthopedist recommending transfer to patient's orthopedic surgeon Dr. Ardon at [facility]. Joint aspiration sent for culture and analysis Subjective Date/time seen: 12/11/22 12:36 Interval history: Continue to try to get patient transferred to his orthopedic surgeon for a knee washout. Per the anesthesia team at [facility] in [place], patient needs to be cleared by a policy change clerks supervisor. According to patient's he has paroxysmal AFib for which he takes Eliquis although this is not noted in his chart anywhere. Spoke with Cardiology and they stated that they would assess the patient. Once patient has been
--- NOTE | 2022-12-11 13:26 | PM.CNCAR ---
Assessment and Plan Assessment and plan (1) Septic joint of left knee joint: Code(s): M00.9 - Pyogenic arthritis, unspecified Status: Acute Plan This is a 67-year-old man without previous cardiac diagnosis admitted to the hospital with infection of a left knee prosthesis. His electrocardiogram shows some conduction system disease with a incomplete left bundle branch block. He however has no cardiovascular complaints or concerns otherwise. He has previously been seen by my partner, Dr. Eden for cardiac evaluation given his history of strokes in the past. There was some concern in the past about atrial fibrillation but this has never been documented or demonstrated. He of course is at risk for atrial fib because of his history of sleep apnea. At this point he is at low risk for cardiac complications of orthopedic surgery. This is a low cardiac risk operation and he has no cardiac diagnosis. Yg Salinas MD [facility] History of Present Illness History of Present Illness Consult date/time: 12/11/22 13:26 Reason For Visit: Sepsis/Pneumonia Narrative: This is a 67-year-old man I am seeing at the request of the hospitalist's and at the request of physicians at a receiving Hospital to provide cardiac consultation prior to transfer. Frankly the current situation seems very puzzling to me since there is no immediate evidence this patient has a cardiac problem. The patient's is hospitalized here because of pain in his knee which has previously been treated by our Orthopedic surgery elsewhere and has now been found to be infected. The patient has a left knee replacement I believe from 2020 from what I read in the chart. 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 The patient has previously seen my partner, Dr. Eden in consultation in the office because of concerns regarding possible cardioembolic CVAs. He has had several strokes in the past and she has seen the patient for evaluation but has never found a cardiac problem. He has no cardiovascular complaints or concerns. Patient's electrocardiogram shows sinus rhythm/sinus tachycardia with an incomplete left bundle branch block. Telemetry is being recorded in the hospital for unclear reasons. He has sinus rhythm with some PACs but no evidence of atrial fibrillation. For whatever reason the hospitalists inform me that the physicians at the receiving hospital would not accept him in transfer without a cardiology consultation on the chart. He is not reporting any symptoms of shortness of breath chest pain palpitations orthopnea or PND. Review of Systems Constitutional: Constitutional: Reports fatigue Eyes: Eyes: Reports no additional eye complaints ENT: Reports system reviewed and no additional complaints, except as documented Cardiovascular: Cardiovascular: Reports no additional cardiovascular complaints Respiratory: Respiratory: Reports no additional respiratory complaints Gastrointestinal: Gastrointestinal: Reports no additional gastrointestinal complaints Musculoskeletal: Musculoskeletal: Reports as per HPI Comments: Left knee pain Neurologic: Comments: Expressive aphasia Endocrine: Endocrine: Reports no additional endocrine complaints Hematologic/Lymphatic: Hematologic/Lymphatic: Reports no additional hematologic/lymphatic complaints Allergic/Immunologic: Allergic/Immunologic: Reports no additional allergic/immunologic complaints PMFSH Past Medical History Medical History B12 deficiency Cerebrovascular accident CVA in June 2015 and July 2015 presenting with expressive aphasia (improved) and mild residual left-sided weakness. 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 DAVID was negative for card
[2022-12-11 16:50] LABS: Glucose Point of Care 171 mg/dl (65-105)
[2022-12-11] MEDS: lisinopriL 20 MG TABLET 40 MG PO (17:00)
[2022-12-11] MEDS: oxyBUTYnin CHLORIDE XL 5 MG TAB.ER.24 10 MG PO (17:00)
--- NOTE | 2022-12-12 06:53 | PM.TDS ---
Transfer Discharge Sum: Prov Provider Date of admission: 12/08/22 22:16 Primary care physician: Yg Davila MD Admitting clinician: Georgiana Crawford DO Consults: 12/10/22 Consult to Physician Routine Comment: Spoke w/office 1200 12/10 (, ) Consulting Provider: Rudy Murcia bilingual call center representative/MD group to consult: ortho Reason for consultation: knee pain and swelling Has provider been notified: Yes 12/11/22 10:53 Consult to Physician Routine Comment: Spoke w/exchange 1130 12/11 (, ) Consulting Provider: Yg Salinas bilingual call center representative/MD group to consult: cardiology Reason for consultation: Needs cardio clearance to be accepted for transfer. hx of afib Has provider been notified: Yes DS: Admitting Diagnosis Discharge Date 12/11/22 Admitting Diagnosis Fall, knee pain, pneumonia DS: Discharge Diagnosis Discharge Diagnosis (1) Sepsis: Qualifiers: Sepsis acute organ dysfunction status: with acute organ dysfunction Sepsis type: sepsis due to unspecified organism Severe sepsis acute organ dysfunction type: encephalopathy Severe sepsis shock status: without septic shock Qualified Code(s): A41.9 - Sepsis, unspecified organism; R65.20 - Severe sepsis without septic shock; G93.40 - Encephalopathy, unspecified Code(s): A41.9 - Sepsis, unspecified organism Status: Acute (2) Pneumonia: Qualifiers: Laterality: right Lung location: upper lobe of lung Pneumonia type: due to unspecified organism Qualified Code(s): J18.9 - Pneumonia, unspecified organism Code(s): J18.9 - Pneumonia, unspecified organism Status: Acute (3) Type 2 diabetes mellitus with hyperglycemia, without long-term current use of insulin: Code(s): E11.65 - Type 2 diabetes mellitus with hyperglycemia Status: Acute (4) Sleep apnea, unspecified: Qualifiers: Sleep apnea type: obstructive Qualified Code(s): G47.33 - Obstructive sleep apnea (adult) (pediatric) Code(s): G47.30 - Sleep apnea, unspecified Status: Acute (5) Neurogenic bladder as late effect of cerebrovascular accident (CVA): Code(s): I69.398 - Other sequelae of cerebral infarction; N31.9 - Neuromuscular dysfunction of bladder, unspecified Status: Acute (6) Fall: Code(s): W19.XXXA - Unspecified fall, initial encounter Status: Acute (7) Septic joint of left knee joint: Code(s): M00.9 - Pyogenic arthritis, unspecified Status: Acute Transfer Discharge Sum: Med Medications Active and Home Medications: Home Medications apixaban 5 mg tablet (Eliquis) 5 mg PO BID #60 tabs 04/29/20 [Rx Confirmed 12/09/22] furosemide 20 mg tablet 40 mg PO DAILY #30 tabs 04/29/20 [Rx Confirmed 12/09/22] mirabegron 50 mg tablet,extended release 24 hr (Myrbetriq) 50 mg PO DAILY #90 tabs 03/20/21 [Rx Confirmed 12/09/22] oxybutynin chloride 10 mg tablet,extended release 24 hr 10 mg PO QPM 04/22/22 [History Confirmed 12/09/22] empagliflozin 25 mg tablet (Jardiance) 25 mg PO DAILY #90 tabs 06/11/22 [Rx Confirmed 12/09/22] potassium chloride 20 mEq tablet,extended release 20 meq PO DAILY #90 tabs 07/05/22 [Rx Confirmed 12/09/22] amlodipine 5 mg tablet 5 mg PO BID #180 tabs 09/30/22 [Rx Confirmed 12/09/22] tamsulosin 0.4 mg capsule 0.4 mg PO QHS 10/13/22 [History Confirmed 12/09/22] liraglutide 0.6 mg/0.1 mL (18 mg/3 mL) subcutaneous pen injector (Victoza 3-Javier) 1.8 mg (0.3 mL) subcut DAILY #9 mL 10/26/22 [Rx Confirmed 12/09/22] celecoxib 200 mg capsule 200 mg PO DAILY 12/09/22 [History Confirmed 12/09/22] cholestyramine (with sugar) 4 gram oral powder 1 ea PO BID PRN Diarrhea 12/09/22 [History Confirmed 12/09/22] glyburide 5 mg tablet 5 mg PO DAILY 12/09/22 [History Confirmed 12/09/22] lisinopril 40 mg tablet 40 mg PO QPM 12/09/22 [History Confirmed 12/09/22] sitagliptin phosphate 50 mg-metformin 1,000 mg tablet (Janumet) 1 tablet PO BID 12/09/22 [History Confirmed 12/09/22] Tr
== END 2022-12-11 20:52 | disposition short-term general hospital (02) | DRG 871 ==
LOC: ANHED 22:16 → ANH2MED 23:04
PROVIDERS: Orthopaedic Surgery; Admitting Provider Internal Medicine; Emergency Provider Emergency Medicine; PCP Family Medicine; Visit Provider Internal Medicine Critical Care Medicine
DX: A41.9 Sepsis, unspecified organism (principal); G93.41 Metabolic encephalopathy; J18.9 Pneumonia, unspecified organism; Z68.42 Body mass index [BMI] 45.0-49.9, adult; I69.354 Hemiplegia and hemiparesis following cerebral infarction affecting left non-dominant side; I50.32 Chronic diastolic (congestive) heart failure; M25.462 Effusion, left knee; R65.20 Severe sepsis without septic shock; E11.65 Type 2 diabetes mellitus with hyperglycemia; G47.33 Obstructive sleep apnea (adult) (pediatric); I69.320 Aphasia following cerebral infarction; I69.398 Other sequelae of cerebral infarction; N31.8 Other neuromuscular dysfunction of bladder; W19.XXXA Unspecified fall, initial encounter; E11.621 Type 2 diabetes mellitus with foot ulcer; L97.529 Non-pressure chronic ulcer of other part of left foot with unspecified severity; I48.0 Paroxysmal atrial fibrillation; E66.01 Morbid (severe) obesity due to excess calories; E78.5 Hyperlipidemia, unspecified; I50.9 Heart failure, unspecified; K58.0 Irritable bowel syndrome with diarrhea; Z96.652 Presence of left artificial knee joint; Z96.651 Presence of right artificial knee joint; Z87.891 Personal history of nicotine dependence
CPT/HCPCS: 36415; 70450; 71045; 73562; 73720; 74177; 80048; 80053; 81003; 82948; 83036; 83605; 84145; 84484; 85025; 85027; 85610; 85730; 87040; 87070; 87075; 87205; 87636; 89051; 89060; 92610; 93005; 94640; 96361; 96365; 96375; 97110; 97161; 97166; 99285; A9270; A9577; J0456; J0696; J1644; J1815; J7030; Q9967

== ENCOUNTER 2023-01-18 10:32 | Emergency (ER) | payer BC, MEDICARE, SELFPAY ==
[2023-01-18] VITALS (15 sets, daily range): BP systolic 118–182; BP diastolic 69–110; PULSE 0–139; RESP 0–54; TEMP 37.6; O2SAT 0–95
--- NOTE | ~2023-01-18 | XR_ITS ---
EXAMINATION: XR chest 1V portable INDICATION: Hypoxia TECHNIQUE: Portable AP chest at 1110 hours COMPARISON: 12/08/2022 FINDINGS: There are diffuse interstitial and airspace opacities of the lungs, right greater than left . No pleural effusion or pneumothorax identified. The cardiac mediastinal silhouette is normal. There are partially imaged changes of fusion procedure in the lower cervical spine. IMPRESSION: 1. Diffuse lung disease, right greater than left, consistent with pulmonary edema and/or pneumonia. Reviewed, dictated and finalized at location L. ULTING SOFTWARE ENGINEER IMPRESSION: 1. Diffuse lung disease, right greater than left, consistent with pulmonary samson ma and/or pneumonia.
--- NOTE | 2023-01-18 10:47 | PC.NURSE ---
Dr Jean Baptiste intubating with RT at bedside. Orders given for 30 Etomiade and 130 of succ.
--- NOTE | 2023-01-18 10:50 | PC.NURSE ---
is at bedside speaking to Dr Jean Baptiste.
--- NOTE | 2023-01-18 10:51 | PC.NURSE ---
decided to stop intubation and is requesting bi pap instead of intubation.
--- NOTE | 2023-01-18 10:52 | PC.NURSE ---
paralytic medicine not given. Drawn at bedside but not adminstered. RT setting up Bi pap. RN bagging at bedside. PT is Awake O2 sat 89%.
--- NOTE | 2023-01-18 10:55 | PC.NURSE ---
decided not to intubated.
--- NOTE | 2023-01-18 10:58 | ECG_ITS ---
Measurements Intervals [place] Rate: 133 P: 46 CO: 117 QRS: 0 QRSD: 118 T: 11 QT: 306 QTc: 457 Interpretive Statements SINUS TACHYCARDIA WITH SHORT CO INTERVAL INTRAVENTRICULAR CONDUCTION DELAY DELAYED PRECORDIAL R/S TRANSITION BASELINE ARTIFACT- I, II, III, AVR, AVL, AVF, V1 ABNORMAL ECG NO PREVIOUS ECG AVAILABLE FOR COMPARISON Electronically Signed On 01-18-2023 11:27:51 [employer] FLEET MAINTENANCE MANAGER by Eliezer Evans D.O.
--- NOTE | 2023-01-18 10:58 | PC.NURSE ---
Pt on bipap.
--- NOTE | 2023-01-18 11:01 | ED.AMS ---
HPI - Altered Mental Status General Chief Complaint: Altered Mental Status Stated Complaint: ams Time Seen by Provider: 01/18/23 10:36 History of Present Illness HPI narrative: Pt presents from NH in respiratory distress. Pt has recent covid diagnosis. Pt has confusion and altered LOC as well. Pt has had several strokes per and that is why he is in NH. is POA. Pt listed as full code but at 1055 says he would not want to be intubated and she made him a DNR. She is comfortable with trying Bipap. Family on way. Related Data Home Medications Medication Instructions Recorded Confirmed oxybutynin chloride 10 mg 10 mg PO QPM 04/22/22 12/09/22 tablet,extended release 24 hr tamsulosin 0.4 mg capsule 0.4 mg PO QHS 10/13/22 12/09/22 celecoxib 200 mg capsule 200 mg PO DAILY 12/09/22 12/09/22 cholestyramine (with sugar) 4 gram 1 ea PO BID PRN Diarrhea 12/09/22 12/09/22 oral powder glyburide 5 mg tablet 5 mg PO DAILY 12/09/22 12/09/22 lisinopril 40 mg tablet 40 mg PO QPM 12/09/22 12/09/22 sitagliptin phosphate 50 1 tablet PO BID 12/09/22 12/09/22 mg-metformin 1,000 mg tablet (Janumeluis) Allergies Allergy/AdvReac Type Severity Reaction Status Date / Time pregabalin Allergy Unknown Unknown Verified 01/18/23 14:50 rivaroxaban Allergy Unknown Headache,Un Verified 01/18/23 14:50 known Review of Systems Review of Systems: ROS unobtainable: Yes unobtainable due to medical condition [facility] Past Medical History Medical History (Updated 01/18/23 @ 14:50 by Kymberly Villalba) B12 deficiency Cerebrovascular accident CVA in June 2015 and July 2015 presenting with expressive aphasia (improved) and mild residual left-sided weakness. 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 DAVID was negative for cardioembolic source. He has been on Eliquis since that time. 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 EF 50 55%. Left ventricular chamber mildly enlarged. Diastolic dysfunction grade 1 Erectile dysfunction associated with vasculopathy History of pancreatitis With pancreatic stent. Hyperlipidemia Hypertension Hypogonadism in male Irritable bowel syndrome with diarrhea Neurogenic bladder as late effect of cerebrovascular accident (CVA) Obstructive sleep apnea on CPAP Patient states he has not been wearing his CPAP. Type 2 diabetes mellitus Surgical History Surgical History (Updated 01/18/23 @ 14:50 by Kymberly Villalba) History of arthroplasty of left knee (~2020) History of cardiac catheterization (~2011) Normal coronary anatomy. History of cervical spinal surgery x2. History of total right knee replacement (~2017) History of vein stripping Status post cataract extraction and insertion of intraocular lens of left eye Family History Family History (System 01/18/23 @ 14:50 by Kymberly Villalba) Mother Family history of Parkinson's disease Family history of coronary artery disease Father Family history of congestive heart failure Hypertension Sibling Family history of lung cancer Other Acute myocardial infarction Diabetes mellitus Heart disease Lung cancer Parkinson's disease Social History Social History (System 01/18/23 @ 14:50 by Kymberly Villalba) Social History: The patient lives in [place] with his of 35 years. They have 2 children. He retired from the [employer]. He smoked briefly as a teenager. No alcohol or illicit substance abuse. His , Gretchen, is his surrogate decision maker and he wishes to be a full code. His states that he would not want long-term ventilation. Smoking status: Never smoker Alcohol intake: never Substance use: never Substance use type: does not use Lack of Transportation: No Lack of Food: Never True Current Housing: I Have Housing Concerned About Future Housin
--- NOTE | 2023-01-18 11:19 | PC.NURSE ---
on arrival to ED, pt noted to have exposed, no cap on PICC line to LUE. cap placed to close opening.
[2023-01-18 11:26] LABS: Lactic Acid Reflex 2.2 mmol/L (0.7-2.0)
[2023-01-18 11:37] LABS: Basophils Absolute Auto 0.1 K/mm3 (0.0-0.1); Basophils Percent Auto 0.5 % (0.2-1.2); Eosinophils Percent Auto 0.1 % (0-4.4); Hematocrit 41.1 % (42.0-52.0); Hemoglobin 12.9 g/dL (14.0-18.0); Immature Granulocyte Absolute 0.37 K/mm3 (0.00-0.031); Immature Granulocyte Percent A 1.8 % (0-0.5); Lymphocytes Absolute Auto 0.96 K/mm3 (0.9-3.2); Lymphocytes Percent Auto 4.5 % (18.3-44.2); Mean Corpuscular HGB Conc 31.4 g/dl (32-36); Mean Corpuscular Hemoglobin 29.9 pg (26-34); Mean Corpuscular Volume 95.1 fl (80-100); Mean Platelet Volume 9.3 fl (7.4-10.4); Monocytes Absolute Auto 0.9 K/mm3 (0.1-0.6); Monocytes Percent Auto 4.3 % (2.6-8.5); Neutrophils Absolute Auto 18.8 K/mm3 (1.3-6.7); Neutrophils Percent Auto 88.8 % (45.5-73.1); Platelet Count Result 364 k/mm3 (150-375); Red Blood Count 4.32 M/mm3 (4.6-6.20); Red Cell Distribution Width 13.2 % (11.5-14.5); White Blood Count 21.1 K/mm3 (4.5-10.0)
[2023-01-18 11:51] LABS: INR 1.6; Prothrombin Time 19.4 Seconds (11.1-14.7)
[2023-01-18 11:52] LABS: Partial Thromboplastin Time 31.6 SECONDS (22.3-36.8)
--- NOTE | 2023-01-18 12:07 | PC.NURSE ---
PT REQUESTING HOSPICE CONSULT, ASKING FOR BIPAB MASK TO BE REMOVED
--- NOTE | 2023-01-18 12:12 | PC.NURSE ---
Bipap taken off patient at 1209 per verbal order from provider after speaking with family
[2023-01-18] MEDS: MORPHINE SULFATE (*CRX) 4 MG/ML INJ IV PUSH (12:16)
--- NOTE | 2023-01-18 12:22 | PCRCNOTE ---
Bipap taken off by R.N. for comfort measures. Family is at the bedside.
[2023-01-18] MEDS: LORazepam INJ (*CRX) 2 MG/ML VIAL 1 MG IV PUSH (12:59)
[2023-01-18 13:01] LABS: Alanine Aminotransferase 17 U/L (6-50); Albumin Level 3.4 g/dL (3.5-5.1); Alkaline Phosphatase 97 U/L (38-126); Anion Gap 17 mmol/L (8-16); Aspartate Amino Transferase 22 U/L (17-59); Bilirubin,Total 0.6 mg/dL (0.2-1.3); Blood Urea Nitrogen 53 mg/dL (9-20); CRP 8.8 mg/dL (<1.0); Carbon Dioxide 10 mmol/L (22-30); Chloride 108 mmol/L (98-107); Estimated Glomerular Filt Rate 47; Glucose 282 mg/dL (65-110); Potassium 6.3 mmol/L (3.4-5.0); Sodium 135 mmol/L (137-145)
--- NOTE | 2023-01-18 13:11 | PC.NURSE ---
Time of called by Dr Jean Baptiste at 1310.
--- NOTE | 2023-01-18 13:51 | PC.NURSE ---
Spoke with MACEY Schwartz from [facility] and gave her an update
[2023-01-18 14:17] LABS: Reflex Lactic Acid Yes or No Add Lactic
--- NOTE | 2023-01-18 14:43 | PC.NURSE ---
Spoke with Aleja from the home and she states ETA to tile picker patient is 1530.
--- NOTE | 2023-01-18 15:11 | PC.NURSE ---
IV removed and patient placed in body bag.
== END 2023-01-18 16:08 | disposition expired ==
PROVIDERS: Emergency Provider Emergency Medicine; PCP Family Medicine
DX: R41.82 Altered mental status, unspecified (principal); R06.03 Acute respiratory distress; J18.9 Pneumonia, unspecified organism; I11.0 Hypertensive heart disease with heart failure; I50.30 Unspecified diastolic (congestive) heart failure; E78.5 Hyperlipidemia, unspecified; E11.9 Type 2 diabetes mellitus without complications; Z86.73 Personal history of transient ischemic attack (TIA), and cerebral infarction without residual deficits
CPT/HCPCS: 36415; 71045; 80053; 83605; 85025; 85610; 85730; 86140; 93005; 94002; 96374; 96375; 99291; J0330; J2060; J2270; J7030